=== PATIENT | male | born 1930 | race Caucasian/White ===

== ENCOUNTER 2020-05-04 05:10 | Inpatient (IN) | payer MEDICARE ==
[2020-05-04] MEDS ORDERED: Nitroglycerin 2% Ointment 1 INCH/1 GM Packet ONE (05:47)
[2020-05-04 05:51] LABS: #Eosinphils 0.1 thou/uL (0.0-0.7); #Lymphocytes 2.2 thou/uL (1.20-3.40); #Monocytes 0.6 thou/uL (0.11-0.59); %Basophils 0.3 % (0.0-1.0); %Eosinophils 1.6 % (0.0-10.0); %Monocytes 8.1 % (0.0-10.0); Hemoglobin 10.7 g/dL (14.0-18.0); Mean Corpuscular HGB CONC 32.2 g/dL (32.0-36.0); Mean Corpuscular Hemoglobin 32.6 pg (27.0-31.0); Mean Platelet Volume 8.3 fL (7.4-10.4); Platelet Count 232 thou/uL (130-400); RBC Distribution Width 12.8 % (11.5-14.5); Red Blood Cell (RBC) Count 3.27 mill/uL (4.70-6.10); White Blood Cell (WBC) Count 6.9 thou/uL (4.8-10.8)
[2020-05-04 06:14] LABS: ALT (SGPT) Less than 7 U/L (8-55); AST (SGOT) 11 U/L (5-34); Albumin 3.6 g/dL (3.4-4.8); Alkaline Phosphatase 75 U/L (40-110); Anion Gap 12 mmol/L (10-20); BUN (Urea Nitrogen) 11 mg/dL (8.4-25.7); Bilirubin, Total 0.3 mg/dL (0.2-1.2); Calc. Creatinine Clearance 0 mL/min (70-130); Calcium 8.3 mg/dL (7.8-10.44); Carbon Dioxide 28 mmol/L (23-31); Chloride 102 mmol/L (98-107); Globulin 2.7 g/dL (2.4-3.5); Glucose 117 mg/dL (83-110); Lipase 10 U/L (8-78); Magnesium 1.6 mg/dL (1.6-2.6); Potassium 4.2 mmol/L (3.5-5.1); Protein, Total 6.3 g/dL (5.8-8.1); Sodium 138 mmol/L (136-145)
[2020-05-04] MEDS ORDERED: Labetalol HCl 100 MG/20 ML VIAL ONE (06:49)
[2020-05-04 07:22] LABS: Bilirubin Negative (Negative); Blood, Urine Negative (Negative); Clarity Clear (Clear); Glucose, Urine (Dipstick) Normal (Negative); Ketone, Urine Negative (Negative); Leukocyte Negative Leu/uL (Negative); Nitrite Negative (Negative); Protein, Urine (Dipstick) Negative (Neg-Trace); Specific Gravity, Urine 1.014 (1.002-1.036); Urobilinogen Normal mg/dL (Less than 2)
--- NOTE | 2020-05-04 07:48 | RAD ---
RADIOGRAPH CHEST 1 VIEW: DATE: 05/04/2020 HISTORY: 89-year-old male with chest pain FINDINGS: The thoracic aorta is tortuous and ectatic. There is no evidence of airspace density, cardiomegaly, p ulmonary edema, or pneumothorax. The lateral costophrenic angles are not effaced. Interstitial markings are prominent at bases. IMPRESSION: 1) No acute pulmonary findings. 2) ectasia of thoracic aorta.
[2020-05-04 09:22] LABS: Troponin I 0.013 ng/mL (< 0.028)
[2020-05-04] MEDS ORDERED: Acetaminophen 325 MG TAB PO PRN (10:08)
[2020-05-04] MEDS ORDERED: Dextrose 50% Abboject 50 ML SYRINGE SLOW IVP PRN (10:14)
[2020-05-04] MEDS ORDERED: Dextrose 5% in Water 1,000 ML IV PRN (10:14)
[2020-05-04] MEDS ORDERED: HumaLOG 300 UNITS/3 ML VIAL SC PRN (10:14)
--- NOTE | 2020-05-04 10:25 | PDOC.HHP ---
Hospitalist HPI - History of Present Illness Chest pain History of Present Illness: 89M presents to the ED for evaluation of substernal chest pain/pressure which started 2-3 hours prior to calling 911 for an ambulance. He reports similar chest pain in the past, Dr. Rashid put in 2 cardiac stents last year in 2019. He reports the nitroglycerin paste improved his chest pain. He was also hypertensive on arrival and was given labetalol. He reports some dypnea and diaphoresis with the chest pain. He has a past medical history of HTN, HLD, and Diabetes. Reports chronic back pain x15 years. Reports he applied a fentanyl patch 3 days ago and it has made him feel "wierd" and had fallen multiple times this past week. He denies pain from these falls. ED Course: EKG: NSR with HR 71, no ST changes. First troponin was negative. Was given labetalol and nitropaste in the ED which improved his symptoms. Hospitalist ROS - Review of Systems ROS unobtainable: due to endotracheal tube Constitutional: denies: fever, chills, sweats, weakness, malaise, other Eyes: denies: pain, vision change, conjunctivae inflammation, eyelid inflammation, redness, other ENT: denies: ear pain, ear discharge, nose pain, nose discharge, nose congestion, mouth pain, mouth swelling, throat pain, throat swelling, other Respiratory: reports: shortness of breath Cardiovascular: reports: chest pain, other (Diaphoresis). denies: paroxysmal noc. dyspnea Gastrointestinal: reports: nausea Musculoskeletal: reports: back pain Skin: denies: rash, lesions, dilip, bruising, other Neurological: reports: incoordination - Medication Medications: Aspirin Childrens SunMay 04, 2020 05:45 TABLET, CHEWABLE : Strength - 81 mg : ORAL Patient Dose: 1 tab(s) Oral once a day. metFORMIN SunMay 04, 2020 05:45 TABLET : Strength - 500 mg : ORAL Patient Dose: UNK mg Oral 2 times a day. Eliquis SunMay 04, 2020 06:28 tablet : Strength - 5 mg : ORAL BID Hospitalist History - Past Medical History Cardiac: reports: CAD, HTN, Hyperlipidemia Pulmonary: reports: high cholesterol, hypertension Musculoskeletal: reports: Chronic low back pain - Past Surgical History Other Surgical History: Cardiac Stents x2 in 2019 - Social History Smoking Status: Never smoker Alcohol: reports: None Drugs: reports: none Living Situation: Alone Activity level: independent ambulation - Exam General Appearance: awake alert Eye: PERRL, anicteric sclera ENT: normocephalic atraumatic Neck: supple, no JVD Heart: RRR, normal peripheral pulses Respiratory: CTAB, normal chest expansion Gastrointestinal: soft, normal bowel sounds Extremities: no cyanosis Skin: normal turgor Skin - other findings: Multiple bruises to left side of undetermined age; various stages of healin Neurological: cranial nerve grossly intact Musculoskeletal: normal tone Psychiatric: normal affect, A&O x 3 Hospitalist Results - Labs Result Diagrams: 05/04/20 05:43 05/04/20 05:43 Lab results: WBC 6.9 thou/uL (4.8-10.8) 05/04/20 05:43 Hgb 10.7 g/dL (14.0-18.0) L 05/04/20 05:43 Hct 33.1 % (42.0-52.0) L 05/04/20 05:43 MCV 101.0 fL (78.0-98.0) H 05/04/20 05:43 Plt Count 232 thou/uL (130-400) 05/04/20 05:43 Neutrophils % 58.0 % (42.0-75.0) 05/04/20 05:43 Sodium 138 mmol/L (136-145) 05/04/20 05:43 Potassium 4.2 mmol/L (3.5-5.1) 05/04/20 05:43 Chloride 102 mmol/L (98-107) 05/04/20 05:43 Carbon Dioxide 28 mmol/L (23-31) 05/04/20 05:43 BUN 11 mg/dL (8.4-25.7) 05/04/20 05:43 Creatinine 0.84 mg/dL (0.7-1.3) 05/04/20 05:43 Glucose 117 mg/dL (83-110) H 05/04/20 05:43 Calcium 8.3 mg/dL (7.8-10.44) 05/04/20 05:43 Total Bilirubin 0.3 mg/dL (0.2-1.2) 05/04/20 05:43 AST 11 U/L (5-34) 05/04/20 05:43 ALT Less than 7 U/L (8-55) L 05/04/20 05:43 Alkaline Phosphatase 75 U/L (40-110) 05/04/20 05:43 Troponin I 0.013 ng/mL (< 0.028) 05/04/20 08:47 Serum Total Protein 6.3 g/dL (5.8-8.1) 05/04/20 05:43 Albumin 3.6 g/dL (3.4-4.8) 05/04/20 05:43 Lipase 10 U/L (8-78) 05/04/20 05:43 Urine Ketones Negative mg/dL (Negative) 05/04/20 06:20 Urine Blood Negative (Negative) 05/04/20 06:20 Urine Nitrite Negative (Negative) 05/04/20 06:20 Ur Leukocyte Esterase Negative Herrera/uL (Negative) 05/04/20 06:20 Hospitalist H&P A/P - Problem (1) Chest pain Code(s): R07.9 - CHEST PAIN, UNSPECIFIED Status: Acute (2) Hypertension Code(s): I10 - ESSENTIAL (PRIMARY) HYPERTENSION Status: Chronic (3) Diabetes Code(s): E11.9 - TYPE 2 DIABETES MELLITUS WITHOUT COMPLICATIONS Status: Chronic (4) Hyperlipemia Code(s): E78.5 - HYPERLIPIDEMIA, UNSPECIFIED Status: Chronic (5) Chronic back pain Code(s): M54.9 - DORSALGIA, UNSPECIFIED; G89.29 - OTHER CHRONIC PAIN Status: Chronic - Plan Plan: #Chest Pain Trending troponins Stress test Fast lipids/TSH in AM #HTN- restart her home meds #DM II- ACHS accuchecks, SS insulin for coverage, will restart metformin after stress test #DVT prevention with Eliquis; Pepcid for PUD prevention Attending today is Dr. Adams
[2020-05-04 12:47] LABS: Troponin I 0.018 ng/mL (< 0.028)
[2020-05-04 14:43] VITALS: BMI 20.8
[2020-05-04] MEDS ORDERED: Losartan 25 MG TAB PO SCH (17:00)
[2020-05-04] MEDS ORDERED: Methocarbamol 500 MG TAB PO PRN (17:02)
[2020-05-04] MEDS: hydrALAZINE 20 MG/ML VIAL SLOW IVP PRN (18:30)
[2020-05-04 20:23] LABS: SARS-CoV-2 MS2 Positive; SARS-CoV-2 N Gene Negative; SARS-CoV-2 S Gene Negative; SARS-CoV-2 by NAA Not Detected (NotDetected); SARS-CoV-2 orf1ab Negative
[2020-05-04] MEDS ORDERED: Apixaban 5 MG TAB PO SCH (21:00)
[2020-05-04] MEDS: Famotidine 20 MG TAB PO SCH (21:08)
[2020-05-04] MEDS: Escitalopram Oxalate 10 mg Tablet PO SCH (21:09)
[2020-05-04] MEDS: Carvedilol 6.25 MG TAB PO SCH (21:09)
[2020-05-04] MEDS: Gemfibrozil 600 MG TAB PO SCH (21:09)
[2020-05-04] MEDS: Apixaban 2.5 MG TAB PO SCH (21:10)
[2020-05-04] MEDS: Senokot S 8.6-50 MG TAB PO SCH (21:10)
[2020-05-04] MEDS: HYDROcodone/Acetaminophen 10/325 mg Tablet PO PRN (21:10)
[2020-05-04] MEDS: Nystatin Powder 15 GM BOT TOP SCH (22:14)
[2020-05-05 05:27] LABS: #Eosinphils 0.1 thou/uL (0.0-0.7); #Lymphocytes 2.6 thou/uL (1.20-3.40); #Monocytes 0.5 thou/uL (0.11-0.59); #Neutrophils 3.3 thou/uL (1.40-6.50); %Basophils 0.5 % (0.0-1.0); %Eosinophils 1.3 % (0.0-10.0); %Lymphocytes 40.1 % (21.0-51.0); %Monocytes 7.6 % (0.0-10.0); %Neutrophils 50.6 % (42.0-75.0); Mean Corpuscular HGB CONC 33.6 g/dL (32.0-36.0); Mean Corpuscular Hemoglobin 34.3 pg (27.0-31.0); Mean Platelet Volume 9.3 fL (7.4-10.4); Platelet Count 230 thou/uL (130-400); RBC Distribution Width 12.9 % (11.5-14.5); Red Blood Cell (RBC) Count 3.21 mill/uL (4.70-6.10); White Blood Cell (WBC) Count 6.6 thou/uL (4.8-10.8)
[2020-05-05] MEDS: hydrALAZINE 20 MG/ML VIAL SLOW IVP PRN (06:11)
[2020-05-05 07:10] LABS: ALT (SGPT) 7 U/L (8-55); AST (SGOT) 14 U/L (5-34); Albumin 3.5 g/dL (3.4-4.8); Alkaline Phosphatase 67 U/L (40-110); Anion Gap 15 mmol/L (10-20); BUN (Urea Nitrogen) 11 mg/dL (8.4-25.7); Bilirubin, Total 0.7 mg/dL (0.2-1.2); Calc. Creatinine Clearance 59 mL/min (70-130); Calcium 8.8 mg/dL (7.8-10.44); Carbon Dioxide 24 mmol/L (23-31); Cardiac Risk 3.3 (Less than 4.5); Chloride 102 mmol/L (98-107); Cholesterol 126 mg/dl (< 200 Desired); Globulin 2.5 g/dL (2.4-3.5); Glucose 114 mg/dL (83-110); HDL Cholesterol 38 mg/dL (>60 Neg Risk); LDL Cholesterol, Calculated 63 mg/dL; Sodium 137 mmol/L (136-145); Triglycerides 123 mg/dL (Less than 150)
[2020-05-05] MEDS: Apixaban 2.5 MG TAB PO SCH ×2 (08:54→21:43)
[2020-05-05] MEDS: Gemfibrozil 600 MG TAB PO SCH ×2 (08:54→21:43)
[2020-05-05] MEDS: Tamsulosin HCl 0.4 MG CAP PO SCH (08:54)
[2020-05-05] MEDS: Aspirin 81 mg Enteric Coated Tablet PO SCH (08:54)
[2020-05-05] MEDS: Escitalopram Oxalate 10 mg Tablet PO SCH ×2 (08:55→21:43)
[2020-05-05] MEDS: Famotidine 20 MG TAB PO SCH ×2 (08:55→21:42)
[2020-05-05] MEDS: DULoxetine 60 MG CAP PO SCH (08:55)
[2020-05-05] MEDS: Nystatin Powder 15 GM BOT TOP SCH ×2 (08:56→21:46)
[2020-05-05] MEDS: Senokot S 8.6-50 MG TAB PO SCH ×2 (08:57→21:44)
[2020-05-05] MEDS ORDERED: Enoxaparin Sodium 30 MG/0.3 ML SYRINGE SC SCH (09:00)
[2020-05-05] MEDS: HYDROcodone/Acetaminophen 10/325 mg Tablet PO PRN ×2 (09:01→21:45)
--- NOTE | 2020-05-05 11:19 | NM ---
Radionucleotide stress and rest myocardial perfusion scan with CT attenuation correction and SPECT im aging Left ventricular wall motion evaluation and ejection fraction HISTORY: Chest pain. FINDINGS: Adenosine protocol. Homogeneous uptake of radiotracer throughout the left ventricular myoca rdium. No focal perfusion defect or reversibility. QGS analysis of gated SPECT images shows no focal wall motion abnormalities. Ejection fraction calcul ated at 65%. IMPRESSION : No evidence of ischemia. Normal LVEF.
--- NOTE | 2020-05-05 12:28 | PDOC.HOSPP ---
- Subjective Encounter Date: 05/05/20 Encounter Time: 08:00 Subjective: Patient denies any new complaints, he mentioned his BP was high overnight but denied dizziness, chest pain or dyspnea. - Objective Vital Signs & Weight: Vital Signs (12 hours) Temp Pulse Resp BP BP Pulse Ox 05/05/20 11:48 97.7 F 92 15 106/57 L 97 05/05/20 08:51 97.8 F 88 20 177/85 H 97 05/05/20 06:11 82 05/05/20 03:38 97.8 F 82 18 203/87 H 95 05/05/20 00:41 78 121/70 Weight Weight 63.684 kg I&O: 05/04/20 05/05/20 05/06/20 06:59 06:59 06:59 Intake Total 600 Output Total 275 Balance 325 Result Diagrams: 05/05/20 04:31 05/05/20 04:30 Additional Labs: Accuchecks 05/05/20 05/04/20 05/04/20 06:06 22:15 16:03 POC Glucose 143 H 143 H 108 H Hospitalist ROS - Review of Systems Constitutional: denies: fever, chills, sweats, weakness, malaise, other Eyes: denies: pain, vision change, conjunctivae inflammation, eyelid inflammation, redness, other ENT: denies: ear pain, ear discharge, nose pain, nose discharge, nose congestion, mouth pain, mouth swelling, throat pain, throat swelling, other Respiratory: denies: cough, dry, shortness of breath, hemoptysis, SOB with excertion, pleuritic pain, sputum, wheezing, other Cardiovascular: denies: chest pain, palpitations, orthopnea, paroxysmal noc. dyspnea, edema, light headedness, other Gastrointestinal: denies: nausea, vomiting, abdominal pain, diarrhea, constipation, melena, hematochezia, other Genitourinary: denies: dysuria, frequency, incontinence, hematuria, retention, other Musculoskeletal: denies: neck pain, shoulder pain, arm pain, back pain, hand pain, leg pain, foot pain, other Skin: denies: rash, lesions, dilip, bruising, other Neurological: denies: weakness, numbness, incoordination, change in speech, confusion, seizures, other - Medication Medications: Active Medications Generic Name Dose Route Start Last Admin Trade Name Charlyq PRN Reason Stop Dose Admin Hydrocodone Bitart/Acetaminophen 2 tab 05/04/20 16:40 05/05/20 09:01 Hydrocodone/Acetaminophen 10/325 Mg Tablet PO 2 tab Q6HR PRN Administration Moderate to Severe Pain (6-10) Apixaban 2.5 mg 05/04/20 21:00 05/05/20 08:54 Apixaban 2.5 Mg Tab PO 2.5 mg BID YOSI Administration Aspirin 81 mg 05/05/20 09:00 05/05/20 08:54 Aspirin 81 Mg Enteric Coated Tablet PO 81 mg DAILY YOSI Administration Carvedilol 6.25 mg 05/04/20 21:00 05/04/20 21:09 Carvedilol 6.25 Mg Tab PO 6.25 mg BID YOSI Administration Duloxetine HCl 60 mg 05/05/20 09:00 05/05/20 08:55 Duloxetine 60 Mg Cap PO 60 mg DAILY YOSI Administration Escitalopram Oxalate 10 mg 05/04/20 21:00 05/05/20 08:55 Escitalopram Oxalate 10 Mg Tablet PO 10 mg BID YOSI Administration Famotidine 20 mg 05/04/20 21:00 05/05/20 08:55 Famotidine 20 Mg Tab PO 20 mg BID YOSI Administration Gemfibrozil 600 mg 05/04/20 21:00 05/05/20 08:54 Gemfibrozil 600 Mg Tab PO 600 mg BID YOSI Administration Hydralazine HCl 10 mg 05/04/20 16:49 05/05/20 06:11 Hydralazine 20 Mg/Ml Vial SLOW IVP 10 mg Q4H PRN Administration SBP > 180 and HR < 70 Isosorbide Mononitrate 30 mg 05/05/20 09:00 05/05/20 08:54 Isosorbide Mononitrate Er 30 Mg Tab PO 30 mg DAILY YOSI Administration Nystatin 0 gm 05/04/20 21:00 05/05/20 08:56 Nystatin Powder 15 Gm Bot TOP 1 applic BID YOSI Administration Ranolazine 1,000 mg 05/04/20 21:00 05/05/20 08:55 Ranolazine 500 Mg Tab PO 1,000 mg BID YOSI Administration Senna/Docusate Sodium 2 tab 05/04/20 21:00 05/05/20 08:57 Senokot S 8.6-50 Mg Tab PO Not Given BID YOSI Tamsulosin HCl 0.4 mg 05/05/20 09:00 05/05/20 08:54 Tamsulosin Hcl 0.4 Mg Cap PO 0.4 mg DAILY YOSI Administration - Exam Eye: PERRL ENT: normocephalic atraumatic Neck: supple Heart: RRR, normal peripheral pulses Respiratory: CTAB, normal chest expansion Gastrointestinal: soft, non-tender Extremities: no cyanosis, no edema Skin: normal turgor Neurological: cranial nerve grossly intact Musculoskeletal: normal tone Psychiatric: normal affect, A&O x 3 Hosp A/P (1) Chest pain Code(s): R07.9 - CHEST PAIN, UNSPECIFIED Status: Resolved (2) Hypertension Code(s): I10 - ESSENTIAL (PRIMARY) HYPERTENSION Status: Chronic (3) Diabetes Code(s): E11.9 - TYPE 2 DIABETES MELLITUS WITHOUT COMPLICATIONS Status: Chronic (4) Hyperlipemia Code(s): E78.5 - HYPERLIPIDEMIA, UNSPECIFIED Status: Chronic (5) Chronic back pain Code(s): M54.9 - DORSALGIA, UNSPECIFIED; G89.29 - OTHER CHRONIC PAIN Status: Chronic - Plan #Chest pain Resolved- he had a normal stress test this morning. Did have 12 beats of SVT while in Nuclear med- discussed with Dr. Chester who was aware. He was not concerned as patient had just had adenosine for the stress test. 1130- Patient came back from his stress test this morning, we discussed the results. He was anxious to go home. 1200 - Patient's nurse contacted me after patient had a syncopal episode while getting up to take a shower. The Tech was with him and was willing to catch him and put him back into bed. He did not sustain any injuries. BP was 106/57. We will recheck a CBC and order a 500ml bolus of fluids. Will hold DC for now. Case discussed with Dr. Brar. Will hold his BP meds and then titrate as needed. Recheck vitals, reassess. Recheck lab values.
[2020-05-05] MEDS ORDERED: Sodium Chloride 0.9% 500 ML IV SCH (12:30)
[2020-05-05 13:06] LABS: #Basophils 0.1 thou/uL (0.0-0.2); #Eosinphils 0.1 thou/uL (0.0-0.7); #Lymphocytes 2.3 thou/uL (1.20-3.40); #Monocytes 0.6 thou/uL (0.11-0.59); #Neutrophils 4.6 thou/uL (1.40-6.50); %Basophils 0.7 % (0.0-1.0); %Eosinophils 0.7 % (0.0-10.0); %Lymphocytes 30.7 % (21.0-51.0); %Monocytes 7.3 % (0.0-10.0); %Neutrophils 60.5 % (42.0-75.0); Hemoglobin 11.4 g/dL (14.0-18.0); Mean Corpuscular HGB CONC 32.6 g/dL (32.0-36.0); Mean Corpuscular Hemoglobin 32.9 pg (27.0-31.0); Mean Platelet Volume 8.8 fL (7.4-10.4); Platelet Count 273 thou/uL (130-400); RBC Distribution Width 12.9 % (11.5-14.5); Red Blood Cell (RBC) Count 3.47 mill/uL (4.70-6.10); White Blood Cell (WBC) Count 7.6 thou/uL (4.8-10.8)
[2020-05-05] MEDS: Carvedilol 6.25 MG TAB PO SCH ×2 (13:08→21:43)
[2020-05-05] MEDS: Losartan 25 MG TAB PO SCH (13:08)
[2020-05-05] MEDS ORDERED: ADENOSINE 60 MG/20 ML VIAL ONE (13:50)
[2020-05-05] MEDS ORDERED: Atorvastatin Calcium 40 MG TAB PO SCH (21:00)
[2020-05-06 05:08] LABS: Hemoglobin 10.6 g/dL (14.0-18.0); Platelet Count 242 thou/uL (130-400)
[2020-05-06 05:24] LABS: Calc. Creatinine Clearance 56 mL/min (70-130)
[2020-05-06] MEDS: Losartan 25 MG TAB PO SCH (09:20)
[2020-05-06] MEDS: Escitalopram Oxalate 10 mg Tablet PO SCH (09:21)
[2020-05-06] MEDS: Tamsulosin HCl 0.4 MG CAP PO SCH (09:21)
[2020-05-06] MEDS: Carvedilol 6.25 MG TAB PO SCH (09:21)
[2020-05-06] MEDS: Senokot S 8.6-50 MG TAB PO SCH (09:21)
[2020-05-06] MEDS: DULoxetine 60 MG CAP PO SCH (09:22)
[2020-05-06] MEDS: Apixaban 2.5 MG TAB PO SCH (09:22)
[2020-05-06] MEDS: Aspirin 81 mg Enteric Coated Tablet PO SCH (09:22)
[2020-05-06] MEDS: Gemfibrozil 600 MG TAB PO SCH (09:22)
[2020-05-06] MEDS: Nystatin Powder 15 GM BOT TOP SCH (09:27)
[2020-05-06] MEDS: HYDROcodone/Acetaminophen 10/325 mg Tablet PO PRN (09:32)
[2020-05-06] MEDS: Famotidine 20 MG TAB PO SCH (10:27)
[2020-05-06 15:25] VITALS: BP 141/76; TEMP 97.7
--- NOTE | 2020-05-06 17:06 | PDOC.DS.DS ---
Provider - Provider Date of Admission: 05/05/20 14:35 Date of Discharge: 05/06/20 Admitting Provider: Ayah Villagomez MD Primary Care Physician: Israel Mckeon MD Course - Hospital Course Hospital Course: Discharge diagnosis: 1. Chest pain 2. Chest pain most likely secondary to musculoskeletal etiology 3. Orthostatic hypotension 4. Falls 5. COVID-19 PCR test negative Hospital course: Patient is a pleasant 89-year-old gentleman who was admitted to the hospital on May 04, 2020 for chest pain. He had a nuclear stress test, which did not show any evidence of ischemia. Left frontal ejection fraction was 65%. He was also found to have orthostatic hypotension. Cortisol level was normal. He was seen by physical therapy service, who gave him advice regarding orthostatic hypotension. They also recommended inpatient rehabilitation. Patient did not wish to have inpatient rehab. Arrangements are being made for home health for physical therapy prior to discharge. Many thanks for allowing me to participate in your patient's care. Please feel free to contact me with any questions or concerns. Discharge destination: Home Total amount of time spent coordinating this discharge: 32 minutes - Labs Lab Results: 05/06/20 04:36 05/06/20 04:36 Abnormal Lab Results - Last 48 hrs 05/05/20 04:30: ALT 7 L 05/05/20 04:31: RBC 3.21 L, Hgb 11.0 L, Hct 32.7 L, MCV 102.0 H, MCH 34.3 H 05/05/20 12:59: RBC 3.47 L, Hgb 11.4 L, Hct 35.1 L, MCV 101.0 H, MCH 32.9 H, Monocytes # 0.6 H 05/06/20 04:36: Hgb 10.6 L, Hct 32.4 L 05/06/20 08:11: D-Dimer 0.59 H - Physical Exam Vitals: Vital Signs (12 hours) Temp Pulse Resp BP BP BP BP 05/06/20 15:23 97.7 F 81 16 05/06/20 12:00 98.0 F 92 18 05/06/20 11:46 135/81 140/71 168/90 H 05/06/20 09:21 162/70 H 05/06/20 08:00 98.4 F 80 18 BP BP BP Pulse Ox 05/06/20 15:23 141/76 H 05/06/20 12:00 140/71 05/06/20 11:46 05/06/20 09:21 05/06/20 08:00 162/70 H 172/90 H 122/65 95 Weight Weight 140 lb 6.4 oz Physical Exam: The patient was seen and examined on the day of discharge. Patient denies chest pain or shortness of breath. Vital signs are stable. S1 and S2 are heard. Lungs are clear to auscultation bilaterally. Plan - Discharge Medications Prescriptions: Nitroglycerin 0.4 mg SL Q5MIN #1 tab.subl Home Medications: Medication Instructions Recorded Confirmed Type Apixaban [Eliquis] 2.5 mg PO BID 05/04/20 05/04/20 History Atorvastatin Calcium 40 mg PO DAILY 05/04/20 05/04/20 History Carvedilol 6.25 mg PO BID 05/04/20 05/04/20 History DULoxetine [Cymbalta] 60 mg PO DAILY 05/04/20 05/04/20 History Escitalopram Oxalate 10 mg PO BID 05/04/20 05/04/20 History Gemfibrozil 600 mg PO BID 05/04/20 05/04/20 History HYDROcodone Bit/APAP 10/325 [Padroni] 2 tab PO Q6HR PRN 05/04/20 05/04/20 History Isosorbide Mononitrate [Isosorbide 30 mg PO DAILY 05/04/20 05/04/20 History Mononitrate ER] Losartan Potassium 100 mg PO DAILY 05/04/20 05/04/20 History Methocarbamol [Robaxin-750] 750 mg PO TID PRN 05/04/20 05/04/20 History Naloxone HCl [Narcan] 4 mg NASAL PRN PRN 05/04/20 05/04/20 History Nystatin [Nystop] 1 applic TOP BID 05/04/20 05/04/20 History Ranolazine [Ranolazine ER] 1,000 mg PO BID 05/04/20 05/04/20 History Tamsulosin HCl [Flomax] 0.4 mg PO DAILY 05/04/20 05/04/20 History metFORMIN HCl [Metformin HCl] 500 mg PO BID 05/04/20 05/04/20 History Nitroglycerin 0.4 mg SL Q5MIN #1 tab.subl 05/05/20 Rx fentaNYL [Duragesic] 25 mcg TD Q3D 05/06/20 05/06/20 History Allergies: Penicillins Allergy (Verified 05/04/20 11:13) - Discharge Instructions Discharge Instructions:: Please follow up with Dr. Mckeon and Dr. Rashid within the next 7-10 days. If you experience chest pain, you may try taking the nitroglycerin tablets, if not improved, or if concerned, please go to the closest emergency room. Activity:: Activity as Tolerated Nourishment:: Heart Healthy Diet - Follow up Plan Referrals: Israel Mckeon MD [Primary Care Provider] - 7 Days (Please call your PCP for follow up in 3 days Follow up with PCP to setup Home Health Rehab ) Disposition: HOME Quality - Care Measures CORE MEASURES:: N/A
== END 2020-05-06 16:45 | disposition home or self-care (01) | DRG 313 ==
LOC: ERS 05:10 → ERHOLD 08:20 → 2NO 14:39 → OBSVTOIN 05-05 14:35
PROVIDERS: ADMIT Internal Medicine; ATTEND Internal Medicine
DX: R07.89 Other chest pain (principal); I47.1 Supraventricular tachycardia; I25.10 Atherosclerotic heart disease of native coronary artery without angina pectoris; Z20.828 Contact with and (suspected) exposure to other viral communicable diseases; I10 Essential (primary) hypertension; E78.5 Hyperlipidemia, unspecified; E11.9 Type 2 diabetes mellitus without complications; G89.29 Other chronic pain; I95.1 Orthostatic hypotension; E78.00 Pure hypercholesterolemia, unspecified; Z88.0 Allergy status to penicillin; Z79.84 Long term (current) use of oral hypoglycemic drugs; Z79.82 Long term (current) use of aspirin; Z91.81 History of falling; Z95.5 Presence of coronary angioplasty implant and graft
CPT/HCPCS: 36415; 36416; 71045; 78452; 80053; 80061; 81003; 82533; 82565; 83690; 83735; 84443; 84484; 85014; 85018; 85025; 85049; 85379; 87635; 93005; 93017; 96374; 96375; 96376; A9500; G0378; J0153; J0360; U0003

== ENCOUNTER 2020-05-12 22:14 | Inpatient (IN) | payer MEDICARE ==
[2020-05-12] MEDS ORDERED: Morphine 4 MG/ML VIAL ONE (22:34)
[2020-05-12] MEDS ORDERED: hydrALAZINE 20 MG/ML VIAL SLOW IVP PRN (23:23)
[2020-05-12] MEDS ORDERED: Dextrose 50% Abboject 50 ML SYRINGE SLOW IVP PRN (23:23)
[2020-05-12] MEDS ORDERED: Dextrose 5% in Water 1,000 ML IV PRN (23:23)
[2020-05-12] MEDS ORDERED: Ondansetron PF 4 MG/2 ML Vial IVP PRN (23:23)
[2020-05-12] MEDS ORDERED: Cyclobenzaprine 10 MG TAB PO PRN (23:30)
[2020-05-12] MEDS ORDERED: Acetaminophen 325 MG TAB PO SCH (23:30)
[2020-05-13] MEDS ORDERED: Morphine 4 MG/ML VIAL ONE (00:44)
--- NOTE | 2020-05-13 02:30 | HP ---
TRAUMA SURGEON: Dr. Cruz. CONSULTING PHYSICIAN: Dr. Hernandez. HISTORY OF PRESENT ILLNESS: The patient is an 89-year-old male, who presented to the emergency department from [facility]. The patient reported that earlier today, he had a mechanical fall while in the bathroom. He reports that his right leg suddenly gave out while he was in the bathroom. He fell onto his right side. He denies hitting his head or loss of consciousness. He states that he has chronic back pain with spinal stenosis and occasionally he has lower extremity weakness and subsequently fall. He denies any lightheadedness, nausea, vomiting, chest pain, shortness of breath, or weakness before the event. The patient does take Eliquis. His GCS is 15 upon my evaluation. He was recently in the hospital on May 04 for two days after reporting chest pain. He has a cardiac history with two cardiac st[place] [address] Beal. On his last hospital admission just last week, the patient had a nuclear stress test, which demonstrated no signs of ischemia with EF of 65%. The patient reports at that time he had heaviness in his chest. Since discharge, he has not had any of such symptoms at home. On his last admission, it was recommended that the patient go to inpatient rehab facility, but the patient declined. He lives at home alone. He has family members, who live near him and help with his care. He does have a Life Alert button that he used to call for assistance. He has had multiple falls recently, even more often than he originally admitted. At the time of my evaluation, the patient denied chest pain, shortness of breath, nausea, vomiting, or abdominal pain. He does report that he has lower back pain that is worse than usual. He does have a fentanyl patch as well as Auberry prescriptions at home. The patient last took his Eliquis earlier this morning. He did not take his evening dose. PAST MEDICAL HISTORY: Cardiac stents in 2019, hypertension, hyperlipidemia, diabetes, chronic back pain with spinal stenosis. PAST SURGICAL HISTORY: Cardiac stents in 2019. SOCIAL HISTORY: The patient lives at home alone. He uses a walker to get around. He denies tobacco, drug, or alcohol use. MEDICATIONS: Include, 1. Nitroglycerin. 2. Auberry 10 two tablets q.6 hours as needed. 3. Isosorbide mononitrate. 4. Atorvastatin. 5. Metformin. 6. Flomax. 7. Ranolazine extended release. 8. Nystatin. 9. Naloxone. 10. Robaxin. 11. Losartan. 12. Gemfibrozil. 13. Escitalopram. 14. Cymbalta. 15. Carvedilol. 16. Eliquis. 17. Fentanyl patch 25 mcg transdermal q.3 days. ALLERGIES: PENICILLIN. PHYSICAL EXAMINATION: VITAL SIGNS: Temperature 98.2, pulse 106, respirations 16, oxygen saturation 100% on 3 L nasal cannula, and blood pressure 103/70. PRIMARY SURVEY: Airway intact. Adequate breath sounds bilaterally. 2+ pulses in the bilateral radials, femorals, and DPs. GCS 15. Gross motor and sensation are intact. No lacerations or external bleeding. The patient does have some bruising to his right lower quadrant, left flank, and left buttock area. SECONDARY SURVEY: HEAD: Normocephalic and atraumatic. No gross palpable skull deformities or tenderness. EYES: Pupils 3 to 2, equal, round, and reactive to light bilaterally. ENT: No signs of trauma. C-SPINE: No step-offs or deformities. Nontender. C-collar not in place. CHEST: Nontender. No crepitus. No abrasions or ecchymosis noted. Equal chest movement. ABDOMEN: Soft, nontender, nondistended. Right lower quadrant bruise. PELVIS: Stable to palpation. Nontender. No abrasions or ecchymosis noted. RECTAL: Deferred. GENITOURINARY: Normal external genitalia. No blood at the meatus. EXTREMITIES: The patient has a deformity to his left lateral proximal thigh with some bruising on the posterior aspect. No abrasions noted. 2+ pulses in the bilateral radials, femorals, and DPs. BACK/SPINE: No step-offs or deformities to the thoracic or lumbar spine. The patient does have tenderness to the lower L-spine, which is worse than baseline. No abrasions or ecchymosis noted. NEUROLOGIC: 5/5 strength in the bilateral hyperion developer, plantar flexion, and dorsiflexion. Gross normal sensation x4 extremities. LABORATORY FINDINGS: White count 5.4, hemoglobin 10.1, hematocrit 31.4, and platelets 247. INR 1.1 and PTT 27.8. Sodium 137, potassium 4.3, chloride 99, bicarb 31, BUN 12, creatinine 0.84, glucose 163, total bilirubin 0.2, AST 13, ALT 7, and alkaline phosphatase 71. DIAGNOSTIC FINDINGS: Chest x-ray demonstrates no evidence for an acute cardiopulmonary process. X-ray of the left hip demonstrates intertrochanteric left proximal femoral fracture. CT of the left lower extremity demonstrates displaced and angulated intertrochanteric left proximal femoral fracture. CT scan of the brain demonstrates no acute intracranial abnormalities, diffuse parenchymal bone loss with sequelae of chronic small-vessel ischemic disease, hyperdense opacification on the left sphenoid, ethmoid, and bilateral maxillary sinuses, which could represent inspired secretions or fungal colonization. CT scan of the T and L-spine demonstrates no acute thoracic or lumbar spinal abnormalities, rightward curvature of the lumbar spine with moderate to severe multilevel degenerative changes most pronounced in the lower L-spine, dilated common bile duct measuring approximately 1.2 cm. No intraluminal calcification, stone. Coronary artery atherosclerosis disease to include the peripheral vessels. ASSESSMENT: 1. Status post mechanical fall from standing. 2. Left intertrochanteric femur fracture. 3. History of cardiac stents x2, coronary artery disease, hypertension, hyperlipidemia, diabetes, and chronic back pain with spinal stenosis, on chronic opioid pain medications and on Eliquis. PLAN: The patient will be admitted to the Trauma Service. He will go to the regular surgical nursing floor. Dr. Hernandez of Orthopedic Surgery has been consulted. He recommends postponing operative intervention until Sunday as the patient last took his Eliquis earlier this morning. We will continue to monitor the patient's lower back pain. If there are new concerns such as worsening back pain or neurological deficiencies, we will consider completing MRI of the spine at this time; however, we will continue conservative management. Pain medications will include the patient's home Auberry prescription with additional adjunctive pain medications. We will modify those as needed. Restart home carvedilol b.i.d. with hold parameters. Hold Eliquis. Repeat blood work in the morning. The patient will have a diabetic diet at this time and will be n.p.o. at midnight on May 14, 2020. Postoperatively, the patient will need placement at acute rehab facility. He is more open minded for this hospitalization to go to rehab. We will have Case Management speak to the patient and coordinate with his family postop. This patient was discussed with Dr. Cruz before this dictation. Job ID: [id number]
[2020-05-13] MEDS: Morphine 4 MG/ML VIAL SLOW IVP PRN ×2 (02:56→07:13)
[2020-05-13 05:50] LABS: #Eosinphils 0.1 thou/uL (0.0-0.7); #Lymphocytes 2.4 thou/uL (1.20-3.40); #Monocytes 0.8 thou/uL (0.11-0.59); #Neutrophils 5.5 thou/uL (1.40-6.50); %Basophils 0.1 % (0.0-1.0); %Eosinophils 1.5 % (0.0-10.0); %Lymphocytes 27.4 % (21.0-51.0); %Monocytes 8.7 % (0.0-10.0); %Neutrophils 62.3 % (42.0-75.0); Hemoglobin 9.5 g/dL (14.0-18.0); Mean Corpuscular HGB CONC 31.8 g/dL (32.0-36.0); Mean Corpuscular Hemoglobin 32.6 pg (27.0-31.0); Mean Platelet Volume 8.6 fL (7.4-10.4); Platelet Count 215 thou/uL (130-400); RBC Distribution Width 12.4 % (11.5-14.5); White Blood Cell (WBC) Count 8.8 thou/uL (4.8-10.8)
[2020-05-13 06:10] LABS: Anion Gap 12 mmol/L (10-20); BUN (Urea Nitrogen) 15 mg/dL (8.4-25.7); Calc. Creatinine Clearance 3 mL/min (70-130); Carbon Dioxide 31 mmol/L (23-31); Chloride 101 mmol/L (98-107); Glucose 144 mg/dL (83-110); Magnesium 1.4 mg/dL (1.6-2.6); Phosphorus 2.9 mg/dL (2.3-4.7); Potassium 4.8 mmol/L (3.5-5.1); Sodium 139 mmol/L (136-145)
[2020-05-13] MEDS: Ibuprofen 200 MG TAB PO SCH ×3 (06:15→21:09)
[2020-05-13] MEDS: Acetaminophen 325 MG TAB PO SCH ×4 (06:16→23:44)
--- NOTE | 2020-05-13 07:27 | CT ---
PRELIMINARY REPORT/DIRECT RADIOLOGY/EMERGENCY AFTER HOURS PROCEDURE: EXAM: CT Head Without Intravenous Contrast. CLINICAL HISTORY: FALL, WITH HIP FX TECHNIQUE: Axial computed tomography images of the head/brain without intravenous contrast. COMPARISON: None provided. FINDINGS: BRAIN: Diffuse brain parenchymal volume loss with periventricular and subcortical white matter hypode nsities. No acute intraparenchymal hemorrhage. No mass lesion. No CT evidence for acute territorial infarct. No midline shift or extra-axial collection. VENTRICLES: No hydrocephalus. ORBITS: No acute finding SINUSES AND MASTOIDS: Hyperdense opacification of the left sphenoid, ethmoid and bilateral maxillary sinuses. Mastoid air cells are clear. SOFT TISSUES: No significant facial or scalp soft tissue swelling evident. No radiopaque foreign body is seen. BONES: No acute skull fracture. IMPRESSION: 1. No acute intracranial abnormality. 2. Diffuse brain parenchymal bone loss with sequela of chronic small vessel ischemic disease. 3. Hyperdense opacification of the left sphenoid, ethmoid and bilateral maxillary sinuses which coul d represent inspissated secretions or fungal colonization. ELECTRONICALLY SIGNED BY: Merlin Araujo DO May 13, 2020 12:10:49 AM RELATIONSHIP ADVISOR FINAL REPORT HEAD CT WITHOUT CONTRAST: DATE: 05/12/2020. COMPARISON: None. HISTORY: Fall on blood thinners, hip fracture. FINDINGS: I agree with the preliminary report. Hyperdense opacification of the posterior ethmoid air cells, and sphenoid sinus on the left as well as hyperdense opacification of bilateral maxillary sinuses noted which may signify inspissated secretions or fungal colonization. There is cerebral volume loss and periventricular hypodensity suggesting small vessel disease. No intracranial hemorrhage, midline shift, mass effect, or ventricular enlargement. IMPRESSION: No intracranial hemorrhage or displaced calvarial fracture. Transcribed Date/Time: 05/13/2020 8:43 AM
--- NOTE | 2020-05-13 07:46 | CT ---
PRELIMINARY REPORT/DIRECT RADIOLOGY/EMERGENCY AFTER HOURS PROCEDURE: EXAM: CT thoracic and Lumbar Spine Without Intravenous Contrast. CLINICAL HISTORY: FALL, WITH HIP FX// TECHNIQUE: Axial computed tomography images of the thoracic and lumbar spine without intravenous cont rast. Sagittal and coronal reformations performed. COMPARISON: None provided. FINDINGS: BONES: No acute fracture or focal osseous lesion. Bony alignment is anatomic. DISCS/DEGENERATIVE CHANGES: Multilevel degenerative changes of the thoracic and lumbar spine most pro nounced in the lumbar spine at L2-L4 with rightward convex curvature of the lumbar spine. SOFT TISSUES: The paraspinal soft tissues are unremarkable. Fibrotic changes of the lungs. Dilated c ommon bile duct measuring 1.2 cm. Scattered aphthous bibasilar calcifications of the aorta and coronary arteries. IMPRESSION: 1. No acute thoracic or lumbar spine abnormality. 2. Rightward curvature of the lumbar spine with moderate to severe multilevel degenerative changes m ost pronounced in the lower lumbar spine. 3. Dilated common bile duct measuring approximately 1.2 cm. No intraluminal calcified stone. 4. Coronary artery atherosclerotic disease to include the peripheral vessels. ELECTRONICALLY SIGNED BY: Merlin Araujo DO May 13, 2020 12:13:34 AM VEST TAILOR FINAL REPORT CT OF THE LUMBAR SPINE WITHOUT CONTRAST: DATE: 05/12/2020. COMPARISON: None. HISTORY: Pain, trauma, history of spinal stenosis. FINDINGS: I agree with the preliminary report. Assessment for central canal and/or neural foraminal stenosis is limited on routine CT. Imaged lung parenchyma demonstrates coarse nonspecific linear interstitial density as well as centrilobular emphysematous change. There is a 4-5 mm pulmonary nodule in the post erior inferior left lower lobe. There is intra- and extrahepatic biliary dilatation, only partially visualized on this exam. The common bile duct measures 1.2 cm in transverse dimension. There is a mid pole left renal cyst. There is extensive atherosclerotic calcification of the abdominal aorta and its branches. Partially imaged bowel demonstrates sigmoid diverticulosis. The bones appear markedly demineralized. There is mid lumbar spine dextroscoliosis. No acute lumbar spine fracture or dislocation. Anterolisthesis at L4-5 noted measuring 5 mm. T12-L1: Mild bilateral facet hypertrophy with no osseous cause of significant central canal or neural foraminal stenosis. L1-2: Disc space narrowing and vacuum disc formation. Bilateral facet hypertrophy, left greater than right. Bilateral neural foraminal stenosis is suspected. L2-3: Prominent degenerative change involving the endplates with disc space narrowing and left latera l osteophyte formation. Bilateral facet hypertrophy, left greater than right. Significant central canal stenosis/left lateral recess stenosis/left neural foraminal stenosis suspected. L3-4: Disc space narrowing with degenerative endplate change and vacuum disc formation. Bilateral fac et hypertrophy. Moderate/severe central canal stenosis and severe left lateral recess stenosis suspected with bilateral neural foraminal stenosis, right greater than left. L4-5: Disc space narrowing with vacuum disc formation. Bilateral facet hypertrophy with moderate bila teral neural foraminal stenosis and severe central canal stenosis. L5-S1: Disc osteophyte complex and bilateral facet hypertrophy leads to bilateral moderate neural for aminal stenosis and moderate/severe central canal stenosis. IMPRESSION: 1. Severe lumbar spine degenerative change. No evidence for acute fracture or dislocation. Osteopenia limits detailed assessment and if symptoms persist, follow-up lumbar spine MRI suggested. 2. Intra- and extrahepatic biliary dilatation, incompletely assessed on this examination. Correlatio n with LFTs and consideration for dedicated imaging of the abdomen advised to exclude the possibility of a biliary obstructive process. Transcribed Date/Time: 05/13/2020 8:53 AM
--- NOTE | 2020-05-13 07:51 | CT ---
PRELIMINARY REPORT/DIRECT RADIOLOGY/EMERGENCY AFTER HOURS PROCEDURE: EXAM: CT thoracic and Lumbar Spine Without Intravenous Contrast. CLINICAL HISTORY: FALL, WITH HIP FX// TECHNIQUE: Axial computed tomography images of the thoracic and lumbar spine without intravenous cont rast. Sagittal and coronal reformations performed. COMPARISON: None provided. FINDINGS: BONES: No acute fracture or focal osseous lesion. Bony alignment is anatomic. DISCS/DEGENERATIVE CHANGES: Multilevel degenerative changes of the thoracic and lumbar spine most pro nounced in the lumbar spine at L2-L4 with rightward convex curvature of the lumbar spine. SOFT TISSUES: The paraspinal soft tissues are unremarkable. Fibrotic changes of the lungs. Dilated c ommon bile duct measuring 1.2 cm. Scattered aphthous bibasilar calcifications of the aorta and coronary arteries. IMPRESSION: 1. No acute thoracic or lumbar spine abnormality. 2. Rightward curvature of the lumbar spine with moderate to severe multilevel degenerative changes m ost pronounced in the lower lumbar spine. 3. Dilated common bile duct measuring approximately 1.2 cm. No intraluminal calcified stone. 4. Coronary artery atherosclerotic disease to include the peripheral vessels. ELECTRONICALLY SIGNED BY: Merlin Araujo DO May 13, 2020 12:13:34 AM TOP LIFT CUTTER FINAL REPORT THORACIC SPINE CT WITHOUT CONTRAST: DATE: 05/12/2020. COMPARISON: None. HISTORY: Pain, trauma. FINDINGS: The partially imaged lung parenchyma demonstrates scattered areas of chronic appearing linear interst itial density as well as scattered areas of emphysematous change and mild bronchiectasis and bronchial wall thickening. There is an area of soft tissue density along the ventral aspect of the trachea at the axial level of the manubrium which could represent a polypoid tracheal lesion or less likely, adherent mucus. This measures 1 cm in craniocaudal dimension and was not mentioned on the preliminary report. Evaluation for central canal and/or neural foraminal stenosis is limited on routine CT. The bones are diffusely demineralized, limiting assessment for nondisplaced fracture. No thoracic spi ne anterolisthesis or retrolisthesis is appreciated. Minimal anterolisthesis at C7-T1. No osseous cause of significant central canal or neural foraminal stenosis is evident within the thor acic spine. There is multilevel thoracic spine disc space narrowing with mild anterior osteophyte formation. No evidence for acute fracture or dislocation within the thoracic spine. IMPRESSION: No acute fracture or dislocation is evident within the thoracic spine. If symptoms persist, MRI is ad vised. There are chronic pulmonary parenchymal findings as detailed above. There is a polypoid lesion within the anterior aspect of the trachea measuring 1 cm at the axial level of the manubrium, not mentioned on the preliminary report. This is suspicious for a nonspecific polypoid lesion. A follow-u p contrast-enhanced CT of the chest would be the study of choice for better assessment. CODE T Transcribed Date/Time: 05/13/2020 9:01 AM
[2020-05-13] MEDS: Famotidine/PF 20 mg/2ml Vial SLOW IVP SCH (08:25)
[2020-05-13] MEDS: Senokot S 8.6-50 MG TAB PO SCH ×2 (08:25→21:20)
[2020-05-13] MEDS: Carvedilol 6.25 MG TAB PO SCH ×2 (08:25→17:47)
[2020-05-13] MEDS: Polyethylene Glycol 3350 17 GM Packet PO SCH (08:25)
[2020-05-13] MEDS: Gabapentin 100 MG CAP PO SCH ×3 (08:25→21:08)
--- NOTE | 2020-05-13 08:52 | CON ---
DATE OF CONSULTATION: 05/13/2020 REQUESTING PHYSICIAN: Lali Cruz MD CONSULTING PHYSICIAN: Bonifacio Hernandez MD REASON FOR CONSULTATION: Left hip 3-part intertrochanteric base neck fracture. BRIEF CLINICAL HISTORY: Amanda is an 89-year-old white male, who was admitted by the Trauma Team after he sustained a ground level fall at home. He was brought via EMS to [facility], where plain radiographs demonstrated his left hip fracture. He has been admitted by the Trauma Team, and our service has been consulted for definitive orthopedic management of this problem. He has had a history of falls recently, and he takes Eliquis for his peripheral vascular and cardiovascular disease. Approximately a week ago, he was admitted for cardiac rule out, which was negative. He still has ejection fracture of 65%. He has been COVID negative on his last admission as well as this current admission. PAST MEDICAL HISTORY: Significant for cardiovascular and peripheral vascular disease, hypertension, hyperlipidemia, chronic low back pain secondary to spinal stenosis, benign prostatic hypertrophy. PAST SURGICAL HISTORY: Cardiac stent placement in 2019. SOCIAL HISTORY: [place] He has 2 sons who live on the property with him. He denies any ethanol, tobacco, illicit drug abuse. He does use a walker to get around. MEDICATIONS: 1. Nitroglycerin. 2. [place]. 3. Isosorbide. 4. Atorvastatin. 5. Metformin. 6. Flomax. 7. Nystatin. 8. Losartan. 9. Gemfibrozil. 10. Cymbalta. 11. Carvedilol. 12. Eliquis. 13. Fentanyl patch for pain control as prescribed by his Pain Management physician. ALLERGIES: THE PATIENT CLAIMS PENICILLIN. PHYSICAL EXAMINATION: GENERAL: This is a well-nourished, well-developed elderly male, appearing his stated age, in no apparent distress or discomfort. He is alert and oriented to person, place, time, situation. Appropriate and responsive with the examiner. HEENT: Head is normocephalic, atraumatic. Pupils equally round and reactive to light. Oropharynx benign. CHEST: Clear to auscultation. ABDOMEN: Soft, benign. EXTREMITIES: No clubbing, cyanosis, or edema. There is shortening and external rotation of the left lower extremity relative to the right, but he is neurovascularly intact in the left lower extremity. Full digital excursion observed. IMAGING STUDIES: Two-view left hip demonstrates a varus angulated, short and displaced 3-part base neck hip fracture on the left. IMPRESSION: 1. Varus angulated 3-part base neck hip fracture of the left. 2. Currently, on anticoagulation. 3. Cardiovascular and peripheral vascular disease. 4. Hyperlipidemia. 5. Hypertension. 6. Advanced age, but very active and independent yet with new onset of falls, becoming more of a home risk. PLAN: 1. The risks, benefits, options, alternatives, and rationale for proceeding with left hip short versus long trochanteric nail fixation and stabilization have been explained in great detail with the patient. He is ready to proceed. All questions were answered. No guarantee of outcome stated or implied. 2. Surgery will be performed tomorrow. His Eliquis has been discontinued now for less than 24 hours. 3. NPO after midnight. Job ID: [id number]
--- NOTE | 2020-05-13 16:01 | PRG ---
DATE OF SERVICE: 05/13/2020 SUBJECTIVE: The patient was seen during morning rounds with Dr. Angel. He is awake, alert, in no distress. The patient had no overnight events and his pain is well controlled. The patient had a mechanical fall yesterday and sustaining a left intertrochanteric femur fracture. The patient does take Eliquis daily. The patient is tolerating diabetic diet at this time. OBJECTIVE: VITAL SIGNS: Temperature 98.2, pulse 82, respirations 18, SpO2 of 95% on room air, blood pressure 127/73. GENERAL: Well-appearing elderly male, awake, alert, in no distress. HEENT: Unremarkable. RESPIRATORY: Good inspiratory and expiratory effort. Respirations are even and nonlabored. CARDIAC: Regular rate, regular rhythm. ABDOMEN: Soft, nontender, nondistended. EXTREMITIES: Moves all extremities, neurovascularly intact x4. NEUROLOGIC: No focal deficits. LABORATORY DATA: There are no new labs to evaluate today. DIAGNOSTICS: There are no new diagnostics. ASSESSMENT: 1. Status post mechanical fall from standing. 2. Left intertrochanteric femur fracture. 3. Anticoagulation, use Eliquis. 4. History of cardiac stents x2, coronary artery disease, hypertension, hyperlipidemia, diabetes, and chronic back pain with spinal stenosis, on chronic opioid medications. PLAN: Continue supportive care and pain regimen. Diabetic diet as tolerated. N.p.o. after midnight as Orthopedic Surgery plans to take the patient to the OR tomorrow for repair of his left intertrochanteric femur fracture. PT and OT to evaluate and treat postop. We will place a rehab screen as the patient will likely need rehab for continued physical and occupational therapy. We will hold patient's Eliquis. The patient was examined by Dr. Angel during morning rounds. Job ID: [id number]
[2020-05-13] MEDS: HYDROcodone/Acetaminophen 10/325 mg Tablet PO PRN (21:35)
[2020-05-14] MEDS ORDERED: Sodium Chloride 0.9% 1,000 ML IV SCH (00:01)
--- NOTE | 2020-05-14 00:37 | PRG ---
DATE OF SERVICE: 05/13/2020 SUBJECTIVE: Patient was seen this evening during rounds. He was half way sitting up at the edge of the bed and had tried to void into a urinal, ultimately making a mess on the floor. The patient was mildly confused, but reoriented. Nursing called to the bedside. The patient was changed and made comfortable in bed. Bed alarm was placed. OBJECTIVE: VITAL SIGNS: Temperature 98.6, pulse 96, respirations 16, oxygen saturation 93% on room air, blood pressure 121/64. GENERAL: Well-appearing elderly male, lying in bed with no signs of acute distress. ASSESSMENT: 1. Status post mechanical fall from standing, multiple recent falls, on Eliquis. 2. Left intertrochanteric femur fracture. 3. Chronic back pain. 4. History of cardiac stents x2, hypertension, hyperlipidemia, diabetes, and chronic opiate use due to spinal stenosis. PLAN: Continue current diet. N.p.o. at midnight. We will start normal saline at 75 an hour for 1 L at midnight. Restart patient's home Spironolactone and Lisinopril with hold parameters as well as Flomax. The patient is going to the OR tomorrow with Dr. Hernandez for fixation of his left intertrochanteric femur fracture. Job ID: [id number] [facility]
[2020-05-14] MEDS: Morphine 4 MG/ML VIAL SLOW IVP PRN (04:30)
[2020-05-14] MEDS: Acetaminophen 325 MG TAB PO SCH ×4 (05:21→23:21)
[2020-05-14] MEDS: Ibuprofen 200 MG TAB PO SCH ×3 (05:22→21:13)
[2020-05-14] MEDS: Carvedilol 6.25 MG TAB PO SCH ×2 (05:22→17:51)
[2020-05-14] MEDS ORDERED: Heparin 10,000 UNITS/ 10 ML VIAL ONE (07:22)
[2020-05-14] MEDS ORDERED: Bupivacaine 0.25% HCL 30 ML VIAL ONE (07:22)
[2020-05-14] MEDS ORDERED: Sodium Chloride 0.9% 30 ML ONE (07:22)
[2020-05-14] MEDS ORDERED: Lidocaine 2% w/Epinephrine 1:200K 20 ML VIAL ONE (07:22)
[2020-05-14] MEDS ORDERED: Fentanyl 100 MCG/2 ML VIAL ONE (07:29)
[2020-05-14] MEDS ORDERED: Levofloxacin 500 mg/D5W 100 ml Premix Bag ONE (07:43)
[2020-05-14] MEDS ORDERED: Clindamycin/D5W 900 mg/50 ml Premix Bag ONE (07:43)
[2020-05-14] MEDS ORDERED: Promethazine HCl 25 MG/ML VIAL SLOW IVP PRN (07:59)
[2020-05-14] MEDS ORDERED: Meperidine HCl/PF 25 MG/ML VIAL SLOW IVP PRN (07:59)
[2020-05-14] MEDS ORDERED: Promethazine HCl 25 MG/ML VIAL IM PRN (07:59)
[2020-05-14] MEDS ORDERED: Ondansetron HCl/PF 4 MG/2 ML Vial IVP PRN (07:59)
--- NOTE | 2020-05-14 08:20 | PRG ---
DATE OF SERVICE: 05/14/2020 HISTORY OF PRESENT ILLNESS: Mr. Gambino is a pleasant 89-year-old male from ground level fall, history of Eliquis for previous heart disease, resting comfortably in bed. The patient presents for left hip fracture, seen by my PA, Bonifacio Kelly, yesterday. He was kept out 24 hours because of the patient's Eliquis. He is alert and oriented, talking to me, in bed. PAST MEDICAL HISTORY: See full attached report for details. OBJECTIVE: VITAL SIGNS: The patient is afebrile. Vital signs are stable. GENERAL: Alert and oriented male, in no acute distress, resting comfortably in bed. EXTREMITIES: Left lower extremity; has pain with internal and external rotation of his left hip. He is neurovascularly intact distally. He has no open wounds. Pain in his left groin. DIAGNOSTIC STUDIES: Left radiographs show a basicervical left femoral neck fracture with lesser tuberosity, 3-part off. IMPRESSION: Basicervical femoral neck fracture/intertrochanteric hip fracture. ASSESSMENT AND PLAN: The patient will be taken to the operating suite for a short TFNA nail for his intertrochanteric hip fracture. I discussed with him the risks and benefits of surgery to include pain, need for transfusion, infection, damage to vital structures, decreased range of motion and strength, and loss of life. The patient will be restarted on his Eliquis upon conclusion. We will follow him in-house. Job ID: [id number]
[2020-05-14 08:26] VITALS: BMI 21.3
[2020-05-14] MEDS ORDERED: PHENYLEPHRINE-NS 100 MCG/ML 10 ML SYRINGE ONE ×2 (09:28→12:23)
[2020-05-14] MEDS ORDERED: SUGAMMADEX SODIUM 200 MG/2 ML VIAL ONE ×2 (09:29)
--- NOTE | 2020-05-14 11:15 | RAD ---
Exam: Left hip 2 views: HISTORY: Status post ORIF left hip COMPARISON: None FINDINGS: Compression screw device in place stabilizing intertrochanteric fracture left hip. No evidence for fracture, dislocation, or other significant acute osseous abnormality. IMPRESSION: Status post ORIF left hip intertrochanteric fracture
[2020-05-14] MEDS ORDERED: Ondansetron PF 4 MG/2 ML Vial ONE (12:23)
[2020-05-14] MEDS ORDERED: ePHEDrine 50 MG/ML VIAL ONE (12:23)
[2020-05-14] MEDS ORDERED: Rocuronium Bromide 10 MG/ML (10ML VIAL) ONE (12:23)
[2020-05-14] MEDS ORDERED: Lidocaine 1% PF 5 ML VIAL ONE (12:23)
[2020-05-14] MEDS ORDERED: Ropivacaine 0.5% HCl/PF (150 MG/30 ML VIAL) ONE (12:23)
[2020-05-14] MEDS ORDERED: Dexamethasone 20 MG/5 ML VIAL ONE (12:23)
[2020-05-14] MEDS ORDERED: PROPOFOL 200 MG/20 ML VIAL ONE (12:23)
[2020-05-14] MEDS: Polyethylene Glycol 3350 17 GM Packet PO SCH (13:43)
[2020-05-14] MEDS: Gabapentin 100 MG CAP PO SCH ×3 (13:43→21:14)
[2020-05-14] MEDS: Famotidine/PF 20 mg/2ml Vial SLOW IVP SCH (13:43)
[2020-05-14] MEDS: DULoxetine 60 MG CAP PO SCH (13:43)
[2020-05-14] MEDS: Senokot S 8.6-50 MG TAB PO SCH ×2 (13:44→21:12)
[2020-05-14] MEDS: Tamsulosin HCl 0.4 MG CAP PO SCH (13:44)
[2020-05-14] MEDS: HYDROcodone/Acetaminophen 10/325 mg Tablet PO PRN ×2 (14:18→21:13)
[2020-05-14] MEDS: Clindamycin/D5W 900 MG in Premix Bag 1 BAG IVPB SCH ×2 (15:32→23:12)
--- NOTE | 2020-05-14 15:46 | PRG ---
DATE OF SERVICE: 05/14/2020 SUBJECTIVE: The patient was seen during morning rounds in the postanesthesia care unit. The patient just returned from the OR after having his left IT femur fracture repair by Dr. Wilson. The patient is currently sleepy, but arousals to voice. The patient had no overnight events. The patient's IV infiltrated in the operating room as he was getting propofol. OBJECTIVE: VITAL SIGNS: Temperature 98.0, pulse 73, respirations 18, SpO2 of 94% on room air, blood pressure 139/77. GENERAL: Well-appearing elderly male, awake, alert, in no distress. HEENT: Unremarkable. RESPIRATORY: Good inspiratory and expiratory effort. Respirations are even and nonlabored. CARDIAC: Regular rate, regular rhythm. ABDOMEN: Soft, nontender. EXTREMITIES: Neurovascularly intact x4. LABORATORY DATA: No new labs. Currently pending. DIAGNOSTICS: No new diagnostics. ASSESSMENT: 1. Status post mechanical fall from standing. 2. Left intertrochanteric femur fracture, status post repair. 3. Long-term anticoagulation use, Eliquis. 4. History of cardiac stents x2, coronary artery disease, hypertension, hyperlipidemia, diabetes, chronic back pain with spinal stenosis, on chronic opioid medications. PLAN: Continue supportive care and pain regimen. Continue diabetic diet as tolerated. Continue maintenance IV fluids until the patient is eating and drinking well. PT and OT to evaluate and treat. Once the patient's hemoglobin is stable, we will restart the patient's Eliquis. The plan was discussed with the attending, who agrees. Job ID: [id number] [facility]TD[facility]
[2020-05-14 16:12] LABS: Hemoglobin 7.8 g/dL (14.0-18.0); Mean Corpuscular Hemoglobin 33.8 pg (27.0-31.0); Mean Platelet Volume 9.1 fL (7.4-10.4); Platelet Count 172 thou/uL (130-400); RBC Distribution Width 12.2 % (11.5-14.5); Red Blood Cell (RBC) Count 2.32 mill/uL (4.70-6.10); White Blood Cell (WBC) Count 7.6 thou/uL (4.8-10.8)
--- NOTE | 2020-05-14 16:16 | RAD ---
EXAM: XR Pelvis AP STANDARD PROVIDED CLINICAL HISTORY: Post operative from internal fixation left hip fracture. COMPARISON: 05/12/2020. FINDINGS: An antegrade intramedullary christian with dynamic compression screw and distal interlocking screw now boogie sfix the previously seen intertrochanteric left femur fracture. There is improvement in alignment of fracture fragments. No hardware complication is seen. Subcutaneous emphysema is seen about the lef t hip with subcutaneous soft tissue swelling also present. Skin clips are seen laterally. Vascular calcifications are again seen in the region of the femoral arteries. No acute fracture or dislocation is present. IMPRESSION: Postoperative changes left hip related to internal fixation of intertrochanteric left hip fracture.
--- NOTE | 2020-05-14 16:17 | RAD ---
Exam: XR Hip Lt 2-3 View PROVIDED CLINICAL HISTORY: Post operative from internal fixation left hip fracture. COMPARISON: 05/12/2020. FINDINGS: An antegrade intramedullary christian with dynamic compression screw and distal interlocking screw now boogie sfix the previously seen intertrochanteric left femur fracture. There is improvement in alignment of fracture fragments. Medial displacement of the lesser trochanter fracture fragment is seen. No jackie dware complication is seen. Subcutaneous emphysema and subcutaneous soft tissue swelling are present about the left hip. Skin clips are seen laterally. Vascular calcifications are again seen in the region of the femoral arteries. No acute fracture or dislocation is present. IMPRESSION: Postoperative changes left hip related to internal fixation of intertrochanteric left hip fracture.
[2020-05-14 16:32] LABS: Anion Gap 16 mmol/L (10-20); BUN (Urea Nitrogen) 13 mg/dL (8.4-25.7); Calc. Creatinine Clearance 52 mL/min (70-130); Calcium 8.5 mg/dL (7.8-10.44); Carbon Dioxide 28 mmol/L (23-31); Chloride 100 mmol/L (98-107); Glucose 309 mg/dL (83-110); Magnesium 1.3 mg/dL (1.6-2.6); Potassium 4.8 mmol/L (3.5-5.1); Sodium 139 mmol/L (136-145)
[2020-05-14 16:33] LABS: Anion Gap 15 mmol/L (10-20); BUN (Urea Nitrogen) 14 mg/dL (8.4-25.7); Calc. Creatinine Clearance 54 mL/min (70-130); Carbon Dioxide 27 mmol/L (23-31); Chloride 100 mmol/L (98-107); Glucose 309 mg/dL (83-110); Potassium 4.9 mmol/L (3.5-5.1); Sodium 137 mmol/L (136-145)
[2020-05-14] MEDS: Ferrous Sulfate 325 MG TAB PO SCH (17:51)
[2020-05-14] MEDS ORDERED: PHOS-NAK 1 PKT PACK PO SCH (20:30)
[2020-05-14] MEDS: Ascorbic Acid 500 mg Chewable Tablet PO SCH (21:15)
[2020-05-14] MEDS: Escitalopram Oxalate 10 mg Tablet PO SCH (21:15)
[2020-05-14] MEDS: Insulin Regular 300 UNITS/3 ML VIAL SC PRN (21:16)
--- NOTE | 2020-05-15 02:02 | PRG ---
DATE OF SERVICE: 05/14/2020 SUBJECTIVE: Patient was seen this evening during rounds. He was lying in bed, resting comfortably and asleep, but no signs of acute distress. He is postoperative day 0, status post left intertrochanteric femur fracture repaired by Dr. Hernandez. Nursing reported no acute events. OBJECTIVE: VITAL SIGNS: Temperature 98.5, pulse 95, respirations 16, oxygen saturation 92% on room air, blood pressure 148/77. ASSESSMENT: 1. Status post multiple mechanical fall, on Eliquis. 2. Left intertrochanteric femur fracture, status post repair. 3. History cardiac stents x2, hypertension, hyperlipidemia, diabetes, chronic opiate use secondary to spinal stenosis. PLAN: Continue current diet and pain regimen. Start physical and occupational therapy. Once the patient is seen by PT, we will ask Case Management to ask for authorization for a snf facility. Job ID: [id number]
[2020-05-15] MEDS: Ibuprofen 200 MG TAB PO SCH ×3 (05:24→21:07)
[2020-05-15] MEDS: Acetaminophen 325 MG TAB PO SCH ×4 (05:24→23:58)
[2020-05-15] MEDS: Insulin Regular 300 UNITS/3 ML VIAL SC PRN (05:45)
[2020-05-15 05:47] LABS: #Lymphocytes 1.5 thou/uL (1.20-3.40); #Monocytes 0.7 thou/uL (0.11-0.59); #Neutrophils 5.3 thou/uL (1.40-6.50); %Basophils 0.3 % (0.0-1.0); %Eosinophils 0.1 % (0.0-10.0); %Lymphocytes 19.9 % (21.0-51.0); %Monocytes 8.9 % (0.0-10.0); %Neutrophils 70.7 % (42.0-75.0); Hemoglobin 6.8 g/dL (14.0-18.0); Mean Corpuscular HGB CONC 32.7 g/dL (32.0-36.0); Platelet Count 187 thou/uL (130-400); RBC Distribution Width 12.3 % (11.5-14.5); Red Blood Cell (RBC) Count 2.05 mill/uL (4.70-6.10); White Blood Cell (WBC) Count 7.4 thou/uL (4.8-10.8)
[2020-05-15 06:11] LABS: Anion Gap 13 mmol/L (10-20); BUN (Urea Nitrogen) 12 mg/dL (8.4-25.7); Calc. Creatinine Clearance 59 mL/min (70-130); Calcium 8.3 mg/dL (7.8-10.44); Carbon Dioxide 29 mmol/L (23-31); Chloride 101 mmol/L (98-107); Glucose 168 mg/dL (83-110); Magnesium 2.3 mg/dL (1.6-2.6); Phosphorus 2.9 mg/dL (2.3-4.7); Potassium 4.3 mmol/L (3.5-5.1); Sodium 139 mmol/L (136-145)
[2020-05-15] MEDS: Polyethylene Glycol 3350 17 GM Packet PO SCH (08:04)
[2020-05-15] MEDS: Tamsulosin HCl 0.4 MG CAP PO SCH (08:06)
[2020-05-15] MEDS: Gabapentin 100 MG CAP PO SCH ×2 (08:06→16:02)
[2020-05-15] MEDS: Famotidine/PF 20 mg/2ml Vial SLOW IVP SCH (08:06)
[2020-05-15] MEDS: DULoxetine 60 MG CAP PO SCH (08:06)
[2020-05-15] MEDS: Escitalopram Oxalate 10 mg Tablet PO SCH ×2 (08:06→21:08)
[2020-05-15] MEDS: Atorvastatin Calcium 40 MG TAB PO SCH (08:06)
[2020-05-15] MEDS: Carvedilol 6.25 MG TAB PO SCH ×2 (08:07→16:02)
[2020-05-15] MEDS: Senokot S 8.6-50 MG TAB PO SCH ×2 (08:07→21:08)
[2020-05-15] MEDS: Ferrous Sulfate 325 MG TAB PO SCH ×2 (08:07→16:02)
[2020-05-15] MEDS: Ascorbic Acid 500 mg Chewable Tablet PO SCH ×2 (08:07→21:07)
[2020-05-15] MEDS: HYDROcodone/Acetaminophen 10/325 mg Tablet PO PRN (16:05)
--- NOTE | 2020-05-15 20:47 | PRG ---
DATE OF SERVICE: 05/15/2020 SUBJECTIVE: The patient was seen during morning rounds, resting comfortably, in no distress. The patient was receiving a unit of packed red blood cells for decreased hemoglobin this morning. The patient had no overnight events. The patient reports that his pain is well controlled at this time. The patient is tolerating a diet. His urinary output is adequate for age and weight. OBJECTIVE: VITAL SIGNS: Temperature 98.0, respirations 16, pulse 79, SpO2 of 97% on room air, blood pressure 134/73. GENERAL: Elderly male, no distress, sleepy, but arouses easily. HEENT: Unremarkable. RESPIRATORY: Good inspiratory and expiratory effort, respirations even and nonlabored. CARDIAC: Regular rate, regular rhythm. EXTREMITIES: Moves all extremities, neurovascularly intact x4. LABORATORY DATA: WBC is 7.4, RBC 2.05, hemoglobin 6.8, hematocrit 20.7, platelets 187. Sodium 139, potassium 4.3, chloride 101, BUN 12, creatinine 0.77, estimated GFR greater than 90, glucose 168, calcium 8.3, phosphorus 2.9, magnesium 2.3. DIAGNOSTICS: There are no new diagnostics to review today. PLAN: Continue supportive care and pain regimen. PT/OT. Continue iron and vitamin C for anemia. Repeat labs in the morning to ensure his hemoglobin is stable. Once the patient's hemoglobin is stable, we will start the patient on chemical VTE prophylaxis. We will continue SCDs at this time. We will also discontinue gabapentin as the patient appears to be sleepier than normal. The plan is discussed with the attending, who agrees. Job ID: [id number]
--- NOTE | 2020-05-16 01:37 | PRG ---
DATE OF SERVICE: 05/15/2020 SUBJECTIVE: The patient was seen this evening during rounds. He was lying in bed, resting comfortably, and asleep with no signs of acute distress. Nursing reported no acute events. OBJECTIVE: VITAL SIGNS: Temperature 98.4, pulse 86, respirations 18, oxygen saturation 92% on room air, and blood pressure 151/78. ASSESSMENT: 1. Status post multiple mechanical falls, on Eliquis. 2. Left intertrochanteric femur fracture, status post repair. 3. History of cardiac stents x2, hypertension, hyperlipidemia, diabetes, and chronic opiate use secondary to spinal stenosis. PLAN: Continue current diet and pain regimen. Continue physical and occupational therapy. The patient had received 1 unit of packed cells today for acute blood loss anemia on chronic anemia. We will follow up CBC in the morning. Start patient's isosorbide mononitrate and losartan today with hold parameters. He is pending discharge to a senior living facility. Job ID: [id number]
[2020-05-16] MEDS: HYDROcodone/Acetaminophen 10/325 mg Tablet PO PRN ×4 (03:31→20:43)
[2020-05-16 05:42] LABS: Anion Gap 15 mmol/L (10-20); BUN (Urea Nitrogen) 14 mg/dL (8.4-25.7); Calc. Creatinine Clearance 59 mL/min (70-130); Calcium 8.2 mg/dL (7.8-10.44); Carbon Dioxide 24 mmol/L (23-31); Chloride 102 mmol/L (98-107); Glucose 149 mg/dL (83-110); Magnesium 1.7 mg/dL (1.6-2.6); Phosphorus 2.4 mg/dL (2.3-4.7); Sodium 137 mmol/L (136-145)
[2020-05-16 05:52] LABS: #Eosinphils 0.1 thou/uL (0.0-0.7); #Lymphocytes 1.7 thou/uL (1.20-3.40); #Monocytes 0.8 thou/uL (0.11-0.59); #Neutrophils 6.4 thou/uL (1.40-6.50); %Basophils 0.5 % (0.0-1.0); %Lymphocytes 18.7 % (21.0-51.0); %Neutrophils 70.9 % (42.0-75.0); Hemoglobin 8.1 g/dL (14.0-18.0); Mean Corpuscular HGB CONC 32.7 g/dL (32.0-36.0); Mean Corpuscular Hemoglobin 31.8 pg (27.0-31.0); Mean Corpuscular Volume 97.2 fL (78.0-98.0); Mean Platelet Volume 8.9 fL (7.4-10.4); Platelet Count 193 thou/uL (130-400); RBC Distribution Width 14.2 % (11.5-14.5); Red Blood Cell (RBC) Count 2.55 mill/uL (4.70-6.10); White Blood Cell (WBC) Count 9.1 thou/uL (4.8-10.8)
[2020-05-16] MEDS: Acetaminophen 325 MG TAB PO SCH ×4 (05:55→23:50)
[2020-05-16] MEDS: Insulin Regular 300 UNITS/3 ML VIAL SC PRN (05:55)
--- NOTE | 2020-05-16 05:55 | OP ---
DATE OF PROCEDURE: 05/14/2020 PREOPERATIVE DIAGNOSIS: Left basicervical/intertrochanteric hip fracture. POSTOPERATIVE DIAGNOSIS: Left basicervical/intertrochanteric hip fracture. PROCEDURE PERFORMED: Left trochanteric fixation nail for intertrochanteric basicervical fracture. GAS SPECIALIST: Austin Kelly PA-C ANESTHESIA: Dr. Guy/Dr. Jessica. The patient received a general intubation. ESTIMATED BLOOD LOSS: Less than 100 mL. TOURNIQUET TIME: None. IMPLANTS: The patient had a Synthes 12 x 170 mm TFNA nail with a 95 mm fenestrated screw and a 5 mm x 36 mm locking screw. ANTIBIOTICS: Clindamycin 900, Levaquin 500. COMPLICATIONS: Difficulty with IV placement. HISTORY OF PRESENT ILLNESS: Mr. Gambino is an 89-year-old male who presents with left hip fracture. The patient sustained a ground level fall, sustained a basicervical femoral neck fracture. I discussed with him the risks and benefits of a left TFNA trochanteric fixation nail. I discussed the risks and benefits of surgery to include pain, scar, bleeding, infection, damage to vital structures, decreased range of motion and strength, need for further surgeries, loss of life or limb. The patient elects to proceed with left fixation. The patient understood the risks and benefits, elected to proceed. DESCRIPTION OF PROCEDURE: After time-out, the patient's left lower extremity was prepped and draped in sterile fashion. Put in traction and reduced the hip, had kind of a high valgus angle. Also manipulated the bone into a position that we liked. After reducing on the AP and lateral radiographs, we prepped and draped the left hip, made stab incisions proximal to the greater trochanter, placed our guide pin under fluoroscopic guidance. We then placed our opening reamer and passed a 12 mm nail, looked under AP and lateral radiographs to place our center guidepin which was anteriorly and pushed on the patient's femoral head and neck to help with apex anterior deformity. We placed our guide pin and took us a couple passes to get the pin in the position. We liked this position center-center as well as anterior-posterior within the neck. We overdrilled and we placed a 95 mm screw compressing the bone into place and compressed it down, allowed to compress in position, we liked. We then washed and then we moved distally and we placed a screw, drilled bicortically, placed a 36 mm x 5 mm screw distally, washed. We then closed our holes with 0, 2-0, and skin georgi. The patient will be weightbearing as tolerated, will receive 24 hours antibiotics, will be started on his Eliquis. The patient will need disposition. Job ID: [id number] MTDD
[2020-05-16] MEDS: Ibuprofen 200 MG TAB PO SCH ×3 (05:56→20:51)
[2020-05-16] MEDS: Carvedilol 6.25 MG TAB PO SCH ×2 (06:59→16:54)
[2020-05-16] MEDS: Losartan 25 MG TAB PO SCH (07:00)
[2020-05-16] MEDS ORDERED: Magnesium 2 GM/50 ML 2 GM in Premix Bag 1 BAG IVPB SCH (08:00)
[2020-05-16] MEDS: Ascorbic Acid 500 mg Chewable Tablet PO SCH ×2 (08:32→20:38)
[2020-05-16] MEDS: Atorvastatin Calcium 40 MG TAB PO SCH (08:32)
[2020-05-16] MEDS: Ferrous Sulfate 325 MG TAB PO SCH ×2 (08:32→16:54)
[2020-05-16] MEDS: DULoxetine 60 MG CAP PO SCH (08:32)
[2020-05-16] MEDS: Famotidine/PF 20 mg/2ml Vial SLOW IVP SCH (08:32)
[2020-05-16] MEDS: Senokot S 8.6-50 MG TAB PO SCH ×2 (08:32→20:38)
[2020-05-16] MEDS: Escitalopram Oxalate 10 mg Tablet PO SCH ×2 (08:32→20:38)
[2020-05-16] MEDS: Tamsulosin HCl 0.4 MG CAP PO SCH (08:32)
[2020-05-16] MEDS: Polyethylene Glycol 3350 17 GM Packet PO SCH (08:33)
[2020-05-16] MEDS ORDERED: Bisacodyl 10 MG SUPP PR SCH (15:30)
--- NOTE | 2020-05-16 18:46 | PRG ---
DATE OF SERVICE: SUBJECTIVE: The patient was seen during morning rounds, awake, alert, ambulating with physical therapy. The patient's pain is controlled at this time. The patient voices no complaints or concerns. The patient had no overnight events. The patient is tolerating his diabetic diet. The patient's urinary output is adequate for age and weight. OBJECTIVE: VITAL SIGNS: Blood pressure 122/69, pulse 93, temperature 97.9, SpO2 of 96% on room air, and respirations 16. GENERAL: Well-appearing elderly male, awake, alert, in no distress. HEENT: Unremarkable. RESPIRATORY: Good inspiratory and expiratory effort, respirations nonlabored. CARDIAC: Regular rate, regular rhythm. EXTREMITIES: Moves all extremities, neurovascularly intact x4. LABORATORY DATA: RBC 2.55, hemoglobin 8.1, hematocrit 24.8, platelets 193. Sodium 137, potassium 4.0, BUN 14, creatinine 0.77, estimated GFR greater than 90, glucose 114, phosphorus 2.4, magnesium 1.3. DIAGNOSTICS: There are no new diagnostics to review today. ASSESSMENT: 1. Status post mechanical fall from standing. 2. Left intertrochanteric femur fracture, status post repair. 3. Long-term anticoagulation use, Eliquis. 4. Postoperative anemia, stable. 5. History of cardiac stent x2; coronary artery disease; hypertension; hyperlipidemia; diabetes; chronic back pain with spinal stenosis, on chronic opioid medications. PLAN: Continue diabetic diet, pain regimen. Increase physical and occupational therapy. We will restart the patient's Eliquis tomorrow if his hemoglobin remains stable. The patient is pending placement to snf facility versus home with home health. If he goes home he will need a home hospital bed as he has decreased mobility due to advanced age, chronic back and neck pain with spinal stenosis and now a left hip fracture. We will replace magnesium. Job ID: [id number] [facility]
[2020-05-16] MEDS: Famotidine 20 MG TAB PO SCH (20:38)
--- NOTE | 2020-05-16 23:52 | PRG ---
DATE OF SERVICE: 05/16/2020 SUBJECTIVE: Patient was seen this evening during rounds. He was lying in bed, resting comfortably, and asleep with no signs of acute distress. Nursing reported that the patient is intermittently confused but that he is reoriented and resting now. OBJECTIVE: VITAL SIGNS: Temperature 98.1, pulse 80, respirations 16, oxygen saturation 94% on room air, blood pressure 163/77. ASSESSMENT: 1. Status post multiple mechanical falls, on Eliquis. 2. Left intertrochanteric femur fracture, status post repair. 3. History of cardiac stents x2, hypertension, hyperlipidemia, diabetes, chronic opioid use due to spinal stenosis. PLAN: Continue current diet and pain regimen. Continue physical and occupational therapy. Repeat blood work in the morning. The patient did receive a unit of blood yesterday. We have not started him on DVT prophylaxis or full-dose anticoagulation. We will consider those tomorrow if his hemoglobin is stable, also something to consider is stopping the patient's Eliquis completely as he has had multiple falls recently and is at a higher risk for having a devastating traumatic brain injury. I do understand that he was started on Eliquis more recently, status post cardiac stent. Trauma Team to discuss tomorrow and make recommendations to patient and behavioral science chair. Job ID: [id number]
[2020-05-17] MEDS: HYDROcodone/Acetaminophen 10/325 mg Tablet PO PRN ×4 (04:18→23:17)
[2020-05-17] MEDS: Acetaminophen 325 MG TAB PO SCH ×4 (05:04→23:30)
[2020-05-17] MEDS: Ibuprofen 200 MG TAB PO SCH ×3 (05:04→21:18)
[2020-05-17 06:13] LABS: Hemoglobin 7.7 g/dL (14.0-18.0); Mean Corpuscular HGB CONC 33.3 g/dL (32.0-36.0); Mean Corpuscular Hemoglobin 32.4 pg (27.0-31.0); Mean Corpuscular Volume 97.1 fL (78.0-98.0); Mean Platelet Volume 8.6 fL (7.4-10.4); Platelet Count 222 thou/uL (130-400); Red Blood Cell (RBC) Count 2.38 mill/uL (4.70-6.10); White Blood Cell (WBC) Count 7.1 thou/uL (4.8-10.8)
[2020-05-17 06:33] LABS: Anion Gap 13 mmol/L (10-20); BUN (Urea Nitrogen) 13 mg/dL (8.4-25.7); Calc. Creatinine Clearance 59 mL/min (70-130); Calcium 8.4 mg/dL (7.8-10.44); Carbon Dioxide 29 mmol/L (23-31); Chloride 101 mmol/L (98-107); Glucose 124 mg/dL (83-110); Magnesium 1.8 mg/dL (1.6-2.6); Potassium 3.6 mmol/L (3.5-5.1); Sodium 139 mmol/L (136-145)
[2020-05-17] MEDS: Escitalopram Oxalate 10 mg Tablet PO SCH ×2 (07:51→21:17)
[2020-05-17] MEDS: Ferrous Sulfate 325 MG TAB PO SCH ×2 (07:51→17:32)
[2020-05-17] MEDS: Ascorbic Acid 500 mg Chewable Tablet PO SCH ×2 (07:52→21:17)
[2020-05-17] MEDS: Famotidine 20 MG TAB PO SCH ×2 (07:52→21:17)
[2020-05-17] MEDS: Losartan 25 MG TAB PO SCH (07:52)
[2020-05-17] MEDS: Atorvastatin Calcium 40 MG TAB PO SCH (07:52)
[2020-05-17] MEDS: Carvedilol 6.25 MG TAB PO SCH ×2 (07:52→17:32)
[2020-05-17] MEDS: Tamsulosin HCl 0.4 MG CAP PO SCH (07:52)
[2020-05-17] MEDS: Senokot S 8.6-50 MG TAB PO SCH ×2 (07:53→21:18)
[2020-05-17] MEDS: Polyethylene Glycol 3350 17 GM Packet PO SCH (07:53)
[2020-05-17] MEDS: DULoxetine 60 MG CAP PO SCH (08:06)
[2020-05-17] MEDS: Apixaban 2.5 MG TAB PO SCH ×2 (10:46→21:17)
[2020-05-17] MEDS: Insulin Regular 300 UNITS/3 ML VIAL SC PRN (11:44)
--- NOTE | 2020-05-17 12:49 | PRG ---
DATE OF SERVICE: 05/17/2020 SUBJECTIVE: Amanda is an 89-year-old male who is postop day 3 from a left intertrochanteric hip fracture treated with short nail fixation. He is doing relatively well, and he is very desirous of going home. He inquires about this since he tells me he will have his sons available to him should he need. Therapy notes demonstrate he has ambulated up to 170-feet with standby assist. PHYSICAL EXAMINATION: Incisions are clean. No strike through. No erythema. He is neurovascularly intact. No malrotation. LABORATORY DATA: Hemoglobin and hematocrit 7.7 and 23.1. He has been order to receive 1 unit of packed red blood cells today. IMPRESSION: 1. 89-year-old male postop day 3 left hip intertrochanteric fracture treated with short nail fixation. 2. Blood loss anemia. PLAN: Continue current care, blood transfusion as noted, and agree with above. Follow for hemorrhage and pain control. DISPOSITION: In terms of discharge to home will be determined based on patient's performance after blood. Job ID: [id number]
--- NOTE | 2020-05-17 18:25 | DIS ---
DATE OF ADMISSION: 05/12/2020 DATE OF DISCHARGE: 05/17/2020 This is Norma Cornejo NP dictating a report for Alli Angel DO. CONSULTS: Orthopedic Surgery, Dr. Hernandez. PROCEDURES: Left intertrochanteric fixation nail for left intertrochanteric basicervical fracture by Dr. Wilson. PRIMARY DIAGNOSES: 1. Mechanical fall, on Eliquis. 2. Left intertrochanteric femur fracture, status post repair. SECONDARY DIAGNOSES: Coronary artery disease, cardiac stents x2, hypertension, hyperlipidemia, diabetes, and chronic back pain with spinal stenosis, on chronic opioid pain medications. DISCHARGE MEDICATIONS: 1. Acetaminophen 325 mg p.o. q.6 hours. 2. Eliquis 2.5 mg p.o. b.i.d. 3. Vitamin C 500 mg p.o. b.i.d. 4. Atorvastatin 40 mg p.o. daily. 5. Carvedilol 6.25 mg p.o. b.i.d. 6. Duloxetine 60 mg p.o. daily. 7. Escitalopram 10 mg p.o. b.i.d. 8. Ferrous sulfate 325 mg p.o. b.i.d. with meals. 9. Isosorbide 30 mg p.o. daily. 10. Losartan 100 mg p.o. daily. 11. MiraLAX as needed for constipation. 12. Ranolazine 1000 mg p.o. b.i.d. 13. Senokot as needed for constipation. 14. Flomax 0.4 mg p.o. daily. 15. Continue Duragesic patch 25 mcg transdermal q.3 days. 16. Gemfibrozil 600 mg p.o. b.i.d. 17. Hydrocodone 10/325 two tabs p.o. q.6 hours p.r.n. pain. 18. Continue metformin 500 mg p.o. b.i.d. 19. Robaxin 750 mg p.o. 3 times a day p.r.n. 20. Narcan 4 mg nasal spray p.r.n. 21. Nitroglycerin 0.4 mg sublingual q.5 minutes chest pain p.r.n. 22. Nystatin powder as needed. No discontinued medications. HISTORY OF PRESENT ILLNESS AND HOSPITAL COURSE: This is an 89-year-old gentleman who presented from the [facility]. The patient had a mechanical fall while in the bathroom. He reports that his leg gave out suddenly causing him to fall on his right side. The patient denies hitting his head or losing consciousness. The patient has chronic back pain with spinal stenosis and occasionally has some lower extremity weakness. The patient denies any lightheadedness, nausea, vomiting, chest pain, or shortness of breath before the event. The patient's GCS was 15. The patient was evaluated and found to have a left intertrochanteric femur fracture. The patient's pain was well controlled pre and postop. The patient tolerated a diabetic diet during his hospital stay. The patient's home pain regimen was continued. The patient did have to receive 1 unit of packed red blood cells on postop day 1 for a hemoglobin of 6.8. His hemoglobin has been stable since and has been restarted on his home Eliquis. On the day of discharge, the patient was examined by Dr. Angel. The patient was ambulating safely with physical therapy using a walker. The patient's vital signs were stable and his exam was unremarkable including GI and cardiopulmonary exam. The patient was deemed stable for discharge home with home health PT, OT, and long term. The patient has a person who comes to help him every day for the last 12 years. This person assist him with any of his needs including housework and cooking all of his meals. The patient also has two sons who live on the same property right next door. DISPOSITION: Stable. DISCHARGE INSTRUCTIONS: 1. Location, home. 2. Diet, diabetic diet. 3. Activity; orthopedic limitations, weightbearing as tolerated. 4. A hospital bed has been requested as the patient is advanced age with decreased mobility even more now with his recent fracture. 5. Followup: Follow up with primary care physician in 7 days to manage blood pressure and pain medications. 6. Follow up with Orthopedic Surgery, Dr. Wilson in the next 10 to 14 days. No need to follow up with Trauma Services, call for any questions. This is just a summary of the patient's hospital stay, please see the entire chart for details. Job ID: [id number] MTDD
--- NOTE | 2020-05-18 02:41 | PRG ---
DATE OF SERVICE: 05/17/2020 SUBJECTIVE: The patient was seen this evening during rounds. He is resting comfortably in bed and asleep with no signs of acute distress. Nursing reported no acute events. OBJECTIVE: VITAL SIGNS: Temperature 98.4, pulse 79, respirations 21, oxygen saturation 95% on room air, blood pressure 121/58. ASSESSMENT: 1. Status post multiple mechanical falls on Eliquis. 2. Left intertrochanteric femur fracture, status post repair. 3. History of cardiac stents, hypertension, hyperlipidemia, diabetes, chronic opiate use secondary to spinal stenosis. PLAN: Continue current diet and pain regimen. Continue physical and occupational therapy. The patient restarted on his home Eliquis. Repeat blood work in the morning. He was discharged earlier today. However, when his family was contacted to come pick him up, they said they had already left and would come back tomorrow. I did advise the nurse to call the family in the morning and come pick the patient up as he is discharged. He will follow up in clinic. If there are any new concerns in the meantime, we will treat them. Job ID: [id number]
[2020-05-18 05:43] LABS: Hemoglobin 7.7 g/dL (14.0-18.0); Mean Corpuscular HGB CONC 32.5 g/dL (32.0-36.0); Mean Corpuscular Hemoglobin 31.9 pg (27.0-31.0); Mean Platelet Volume 8.7 fL (7.4-10.4); Platelet Count 229 thou/uL (130-400); RBC Distribution Width 14.1 % (11.5-14.5); White Blood Cell (WBC) Count 6.2 thou/uL (4.8-10.8)
[2020-05-18] MEDS: HYDROcodone/Acetaminophen 10/325 mg Tablet PO PRN (06:07)
[2020-05-18] MEDS: Ibuprofen 200 MG TAB PO SCH (06:44)
[2020-05-18] MEDS: Acetaminophen 325 MG TAB PO SCH (06:44)
[2020-05-18] MEDS: Famotidine 20 MG TAB PO SCH (08:29)
[2020-05-18] MEDS: Senokot S 8.6-50 MG TAB PO SCH (08:29)
[2020-05-18] MEDS: Ferrous Sulfate 325 MG TAB PO SCH (08:32)
[2020-05-18] MEDS: Atorvastatin Calcium 40 MG TAB PO SCH (08:32)
[2020-05-18] MEDS: Ascorbic Acid 500 mg Chewable Tablet PO SCH (08:32)
[2020-05-18] MEDS: Carvedilol 6.25 MG TAB PO SCH (08:32)
[2020-05-18] MEDS: Polyethylene Glycol 3350 17 GM Packet PO SCH (08:32)
[2020-05-18] MEDS: Tamsulosin HCl 0.4 MG CAP PO SCH (08:32)
[2020-05-18] MEDS: Escitalopram Oxalate 10 mg Tablet PO SCH (08:32)
[2020-05-18] MEDS: DULoxetine 60 MG CAP PO SCH (08:32)
[2020-05-18] MEDS: Losartan 25 MG TAB PO SCH (08:37)
[2020-05-18] MEDS: Apixaban 2.5 MG TAB PO SCH (08:38)
[2020-05-18 08:50] VITALS: TEMP 98.5
[2020-05-18 10:17] VITALS: BP 138/72
== END 2020-05-18 12:43 | disposition home health service (06) | DRG 481 ==
LOC: ERS 22:14 → SURG A 23:23
PROVIDERS: ADMIT Surgery; ATTEND Surgery
PROC: 0QH736Z Insertion of Intramedullary Internal Fixation Device into Left Upper Femur, Percutaneous Approach (ICD-10-PCS; principal; 2020-05-14)
PROC: 30233N1 Transfusion of Nonautologous Red Blood Cells into Peripheral Vein, Percutaneous Approach (ICD-10-PCS; 2020-05-15)
DX: S72.142A Displaced intertrochanteric fracture of left femur, initial encounter for closed fracture (principal); F11.20 Opioid dependence, uncomplicated; D62 Acute posthemorrhagic anemia; W18.30XA Fall on same level, unspecified, initial encounter; Z20.822 Contact with and (suspected) exposure to COVID-19; I25.10 Atherosclerotic heart disease of native coronary artery without angina pectoris; I10 Essential (primary) hypertension; E78.5 Hyperlipidemia, unspecified; M54.9 Dorsalgia, unspecified; M48.00 Spinal stenosis, site unspecified; G89.29 Other chronic pain; E11.51 Type 2 diabetes mellitus with diabetic peripheral angiopathy without gangrene; N40.0 Benign prostatic hyperplasia without lower urinary tract symptoms; Z95.5 Presence of coronary angioplasty implant and graft; Y92.012 Bathroom of single-family (private) house as the place of occurrence of the external cause; Z79.82 Long term (current) use of aspirin; Z79.01 Long term (current) use of anticoagulants; Z79.84 Long term (current) use of oral hypoglycemic drugs; Z79.899 Other long term (current) drug therapy
CPT/HCPCS: 36415; 36416; 36430; 70450; 71045; 72128; 72131; 72170; 76000; 80048; 80053; 83735; 84100; 85025; 85027; 85610; 85730; 86850; 86900; 86901; 93005; 93010; 96374; 96376; C1713; G0390; J0360; J1100; J1644; J1815; J1956; J2270; J2405; J2704; J2795; J3010; J3475; J3490; P9016; S0020; S0028; U0002

== ENCOUNTER 2020-05-25 15:09 | Inpatient (IN) | payer MEDICARE ==
[~2020-05-25 15:09] MED LIST: Iopamidol-370 76% 500 ML 1 ML ONE
--- NOTE | 2020-05-25 16:17 | RAD ---
PORTABLE CHEST: 05/25/20 HISTORY: Shortness of breath. COMPARISON: 05/12/20 FINDINGS: New hazy infiltrate in the right mid lung when compared to prior study. Heart size within normal rang e and stable. Vascular markings within normal range. IMPRESSION: There is new hazy infiltrate in the right mid lung. POS: AH
[2020-05-25 16:51] LABS: #Lymphocytes 1.9 thou/uL (1.20-3.40); #Monocytes 0.5 thou/uL (0.11-0.59); #Neutrophils 3.3 thou/uL (1.40-6.50); %Basophils 0.2 % (0.0-1.0); %Eosinophils 0.8 % (0.0-10.0); %Lymphocytes 32.5 % (21.0-51.0); %Monocytes 9.4 % (0.0-10.0); %Neutrophils 57.1 % (42.0-75.0); Hemoglobin 8.1 g/dL (14.0-18.0); Mean Corpuscular Hemoglobin 32.5 pg (27.0-31.0); Mean Platelet Volume 8.4 fL (7.4-10.4); Platelet Count 379 thou/uL (130-400); RBC Distribution Width 15.2 % (11.5-14.5); White Blood Cell (WBC) Count 5.7 thou/uL (4.8-10.8)
[2020-05-25 17:41] LABS: ALT (SGPT) 11 U/L (8-55); AST (SGOT) 36 U/L (5-34); Albumin 3.5 g/dL (3.4-4.8); Alkaline Phosphatase 98 U/L (40-110); Anion Gap 18 mmol/L (10-20); BUN (Urea Nitrogen) 14 mg/dL (8.4-25.7); Bilirubin, Total 0.9 mg/dL (0.2-1.2); Calc. Creatinine Clearance 0 mL/min (70-130); Calcium 8.2 mg/dL (7.8-10.44); Carbon Dioxide 24 mmol/L (23-31); Chloride 98 mmol/L (98-107); Glucose 116 mg/dL (83-110); Lipase 4 U/L (8-78); Magnesium 1.6 mg/dL (1.6-2.6); Potassium 5.6 mmol/L (3.5-5.1); Protein, Total 6.5 g/dL (5.8-8.1); Sodium 134 mmol/L (136-145)
--- NOTE | 2020-05-25 18:28 | CT ---
CT angiogram chest: 05/25/2020 COMPARISON: None HISTORY: Evaluate for pulmonary arterial embolism, chest pain and hypoxia TECHNIQUE: Axial CT imaging at 2.5 mm intervals from the thoracic inlet through the upper abdomen wit h IV contrast using CT angiogram protocol. Coronal and oblique sagittal 3-D reformatted imaging obtained. FINDINGS: Imaged upper abdomen demonstrates granulomatous calcification within the liver and spleen. There is scattered atherosclerotic calcification of the abdominal aorta and its branches. Hyperdensity within the gallbladder suggest cholelithiasis. Trace pleural fluid on the right. No left-sided pleural effusion. No significant pericardial or media stinal fluid. No axillary lymphadenopathy. Nonspecific mild bilateral hilar lymphadenopathy is noted, measuring 1.4 cm short axis dimension on t he right and 9-10 mm short axis dimension on the left. Mildly enlarged subcarinal lymph node noted measuring in the 1.4 cm range. Mildly prominent AP window and right paratracheal lymph nodes are note d measuring up to 1.3 cm. There is scattered atherosclerotic calcification of the thoracic aorta. There is extensive coronary a rterial calcification. There is good opacification of the pulmonary arterial vasculature. There is no evidence for acute pul monary arterial embolism. There are extensive emphysematous changes noted bilaterally with pulmonary hyperinflation suggesting air trapping. There is asymmetric prominent linear interstitial density with superimposed groundglass opacity/airspace disease within the posterior inferior aspect of the right upper lobe. Th ere is mild bronchial wall thickening and bronchiectatic change within bilateral lower lobes. Mild peripheral reticular nodular densities are noted within the superior segment of the right lower lobe. Peripheral linear increased reticulonodular density is noted within the inferior posterior bilateral lower lobes, right greater than left. There is a nodule in the left lower lobe on axial image 98 measuring 5-6 mm, nonspecific. Review of [facility] osseous structures demonstrates no worrisome lytic or blastic bone lesions. IMPRESSION: No evidence for pulmonary arterial embolism Extensive coronary arterial calcification. Emphysematous changes are noted bilaterally. There is prominent interstitial and groundglass airspace disease within the right upper lobe which may signify infectious pneumonitis or aspiration. Similar less conspicuous findings are noted within the lung bases, right greater than left. Bronchial wall thickening is noted as well. Findings could potentially represent Covid pneumonia in the proper clinical setting. Recommend short-term follow-up imaging following treatment to document resol ution.
[2020-05-25] MEDS ORDERED: cefTRIAXone\\ROCEPHIN 1 GM VIAL ONE (18:32)
[2020-05-25 19:21] LABS: Bacteria/HPF None Seen HPF (None Seen); Bilirubin Negative (Negative); Blood, Urine 1+ (Negative); Clarity Clear (Clear); Glucose, Urine (Dipstick) Normal (Negative); Ketone, Urine Negative (Negative); Leukocyte Negative Leu/uL (Negative); Nitrite Negative (Negative); Protein, Urine (Dipstick) Negative (Neg-Trace); RBC/HPF 21-50 HPF (0-3); Specific Gravity, Urine 1.024 (1.002-1.036); Squamous Epithelial None Seen HPF (0-3); Urobilinogen Normal mg/dL (Less than 2); WBC/HPF 0-3 HPF (0-3)
[2020-05-25] MEDS ORDERED: Azithromycin 500 MG VIAL ONE (19:56)
[2020-05-25 20:56] VITALS: BMI 21.7
[2020-05-25] MEDS ORDERED: Promethazine HCl 12.5 MG in Sodium Chloride 0.9% 50 ML IVPB PRN (21:07)
[2020-05-25] MEDS ORDERED: hydrALAZINE 20 MG/ML VIAL SLOW IVP PRN (21:07)
[2020-05-25] MEDS ORDERED: Ondansetron PF 4 MG/2 ML Vial IVP PRN (21:07)
[2020-05-25] MEDS ORDERED: HYDROcodone/Acetaminophen 5/325 mg Tablet PO PRN (21:07)
[2020-05-25] MEDS ORDERED: cloNIDine 0.1 MG TAB PO PRN (21:07)
[2020-05-25] MEDS ORDERED: Acetaminophen 325 MG TAB PO PRN (21:07)
[2020-05-25] MEDS ORDERED: Guaifenesin DM 100-10/5 ML UDCUP PO PRN (21:07)
--- NOTE | 2020-05-25 21:13 | PDOC.HHP ---
Hospitalist HPI - History of Present Illness Shortness of breath History of Present Illness: Patient is an 89 year old male with PMH HTN, T2DM who presents to hospital for presyncopal episode at home, patient was with HH nurse and experienced episode of lightheadedness and almost fell down. he recently had L hip surgery in this hospital. EMS found patient BP low in 60s, 99/52 in EMS on arrival, satting 91% on RA and does not wear o2 at home, he lives alone and family comes to check on him. In ED, d dimer 3.8, K 5.6, na 3.4, CTA chest performed and revealed groundglass opacities in RUL, lung bases, bronchial wall thickenign suspisious for pneumonia and possible covid. patient admitted for further workup and care. Hospitalist ROS - Review of Systems Constitutional: denies: fever, chills, sweats, weakness, malaise, other Eyes: denies: pain, vision change, conjunctivae inflammation, eyelid inflammation, redness, other ENT: denies: ear pain, ear discharge, nose pain, nose discharge, nose congestion, mouth pain, mouth swelling, throat pain, throat swelling, other Respiratory: reports: cough, shortness of breath, pleuritic pain, sputum. denies: dry, hemoptysis, SOB with excertion, wheezing, other Cardiovascular: denies: chest pain, palpitations, orthopnea, paroxysmal noc. dyspnea, edema, light headedness, other Gastrointestinal: denies: nausea, vomiting, abdominal pain, diarrhea, constipation, melena, hematochezia, other Genitourinary: denies: dysuria, frequency, incontinence, hematuria, retention, other Musculoskeletal: denies: neck pain, shoulder pain, arm pain, back pain, hand pain, leg pain, foot pain, other Skin: denies: rash, lesions, dilip, bruising, other Neurological: denies: weakness, numbness, incoordination, change in speech, confusion, seizures, other All other systems reviewed; all pertinent +/- noted in HPI/Subj - Medication Medications: Aspirin Childrens SunMay 25, 2020 15:22 ALBERT Lucio Lacee TABLET, CHEWABLE : Strength - 81 mg : ORAL Patient Dose: 1 tab(s) Oral once a day. metFORMIN Tue May 25, 2020 15:22 Lucio, RN, Tia TABLET : Strength - 500 mg : ORAL Patient Dose: 1000 mg Oral 2 times a day. Eliquis SunMay 25, 2020 15:22 Lucio, RN, Tia tablet : Strength - 5 mg : ORAL Patient Dose: 25 mg Oral.UNSURE OF HOW OFTEN MED IS TAKEN. atorvastatin SunMay 25, 2020 15:24 Lucio, RN, Tia TABLET : Strength - 40 mg : ORAL Patient Dose: 1 tab(s) Oral once a day. carvedilol SunMay 25, 2020 15:24 Lucio, RN, Tia TABLET : Strength - 6.25 mg : ORAL Patient Dose: 1 tab(s) Oral 2 times a day. gemfibrozil SunMay 25, 2020 15:24 Lucio, RN, Tia TABLET : Strength - 600 mg : ORAL Patient Dose: 1 tab(s) Oral once a day. isosorbide mononitrate SunMay 25, 2020 15:24 Lucio, RN, Tia TABLET, EXTENDED RELEASE 24 HR : Strength - 60 mg : ORAL Patient Dose: 0.5 tab(s) Oral once a day (in the morning). losartan SunMay 25, 2020 15:24 Lucio, RN, Tia TABLET : Strength - 100 mg : ORAL Patient Dose: 1 tab(s) Oral once a day. tamsulosin SunMay 25, 2020 15:24 Lucio, RN, Tia CAPSULE, EXT RELEASE 24 HR : Strength - 0.4 mg : ORAL Patient Dose: 1 tab(s) Oral once a day. DULoxetine SunMay 25, 2020 15:25 Lucio, RN, Tia capsule,delayed release(DR/EC) : Strength - 60 mg : ORAL Patient Dose: 1 tab(s) Oral.UNSURE OF HOW OFTEN MED IS TAKEN. ranolazine SunMay 25, 2020 15:26 Lucio, RN, Tia tablet extended release 12 hr : Strength - 1,000 mg : ORAL Patient Dose: 1 tab(s) Oral.UNSURE OF HOW OFTEN MED IS TAKEN. Hospitalist History - Past Medical History Musculoskeletal: reports: Chronic low back pain Other Medical History: HTN, DM - Past Surgical History Other Surgical History: hip surgery 2 stents - Family History Family History: reports: no pertinent history - Social History Alcohol: reports: None Drugs: reports: none - Exam General Appearance: NAD, awake alert Eye: PERRL, anicteric sclera ENT: normocephalic atraumatic, no oropharyngeal lesions, moist mucosa Neck: supple, symmetric, no JVD, no thyromegaly, no lymphadenopathy, no carotid bruit Heart: RRR, no murmur, no gallops, no rubs, normal peripheral pulses Respiratory: CTAB, no wheezes, no rales, no ronchi, normal chest expansion, no tachypnea, normal percussion Gastrointestinal: soft, non-tender, non-distended, normal bowel sounds, no palpable masses, no hepatomegaly, no splenomegaly, no bruit Extremities: no cyanosis, no clubbing, no edema Skin: normal turgor, no lesions, no rashes Neurological: cranial nerve grossly intact, normal sensation to touch, no weakness, no focal deficits, no new deficit Musculoskeletal: normal tone, normal strength, no muscle wasting Psychiatric: normal affect, normal behavior, A&O x 3 Hospitalist Results - Labs Result Diagrams: 05/25/20 16:35 05/25/20 16:35 Lab results: WBC 5.7 thou/uL (4.8-10.8) 05/25/20 16:35 Hgb 8.1 g/dL (14.0-18.0) L 05/25/20 16:35 Hct 25.4 % (42.0-52.0) L 05/25/20 16:35 MCV 101.0 fL (78.0-98.0) H 05/25/20 16:35 Plt Count 379 thou/uL (130-400) 05/25/20 16:35 Neutrophils % 57.1 % (42.0-75.0) 05/25/20 16:35 Sodium 134 mmol/L (136-145) L 05/25/20 16:35 Potassium 5.6 mmol/L (3.5-5.1) H 05/25/20 16:35 Chloride 98 mmol/L (98-107) 05/25/20 16:35 Carbon Dioxide 24 mmol/L (23-31) 05/25/20 16:35 BUN 14 mg/dL (8.4-25.7) 05/25/20 16:35 Creatinine 0.89 mg/dL (0.7-1.3) 05/25/20 16:35 Glucose 116 mg/dL (83-110) H 05/25/20 16:35 Lactic Acid 0.9 mmol/L (0.5-2.2) 05/25/20 18:33 Calcium 8.2 mg/dL (7.8-10.44) 05/25/20 16:35 Total Bilirubin 0.9 mg/dL (0.2-1.2) 05/25/20 16:35 AST 36 U/L (5-34) H 05/25/20 16:35 ALT 11 U/L (8-55) 05/25/20 16:35 Alkaline Phosphatase 98 U/L (40-110) 05/25/20 16:35 Troponin I 0.026 ng/mL (< 0.028) 05/25/20 16:35 B-Natriuretic Peptide 263.4 pg/mL (0-100) H 05/25/20 16:35 Serum Total Protein 6.5 g/dL (5.8-8.1) 05/25/20 16:35 Albumin 3.5 g/dL (3.4-4.8) 05/25/20 16:35 Lipase 4 U/L (8-78) L 05/25/20 16:35 Urine Ketones Negative mg/dL (Negative) 05/25/20 19:01 Urine Blood 1+ (Negative) A 05/25/20 19:01 Urine Nitrite Negative (Negative) 05/25/20 19:01 Ur Leukocyte Esterase Negative Herrera/uL (Negative) 05/25/20 19:01 Urine RBC 21-50 HPF (0-3) A 05/25/20 19:01 Urine WBC 0-3 HPF (0-3) 05/25/20 19:01 Ur Squamous Epith Cells None Seen HPF (0-3) 05/25/20 19:01 Urine Bacteria None Seen HPF (None Seen) 05/25/20 19:01 Additional comment: VITAL SIGNS SunMay 25, 2020 15:23 ALBERT Sims, Tram BP: 101/55 MAP: 70 Pulse: 62 Temp: 97.9 (Oral) Pain: 0 O2 sat: 96 on (Room Air) Time: 05/25/2020 15:23. labs, ED documents, imaging reports reviewed - EKG Interpretation EKG: sinus bradycardia 58 bpm, no acute ST changes Hospitalist H&P A/P - Plan Plan: Patient is an 89 year old male with PMH HTN, T2DM who presents to hospital for presyncopal episode at home, found to have possible pneumonia # abnomal lung imaging suspicious for pneumonia - covid vs aspiration vs community aquired, patinet with chronic swallowing issues - admit to floor - start azitromycin, ceftriaxone, metronidazole - follow up covid swab - speech consult # debility - pt/ot consult # HTN - resume home meds, prn medications ordered # dm - SSI, resume home meds as indicated # hyperkalemia - perhaps due to hypovolemia, start 1 bag gentle IVF, trend BMP DVT/GI ppx
[2020-05-25] MEDS ORDERED: Electrolyte Replacement Protocol 1 EACH FS SCH (21:15)
[2020-05-25] MEDS ORDERED: Dextrose 50% Abboject 50 ML SYRINGE SLOW IVP PRN (21:54)
[2020-05-25] MEDS ORDERED: Dextrose 5% in Water 1,000 ML IV PRN (21:54)
[2020-05-25] MEDS ORDERED: Azithromycin 500 MG in Syringe 0 ML IVPB ONE (22:20)
[2020-05-25] MEDS ORDERED: Sodium Chloride 0.9% 500 ML IV SCH (22:30)
[2020-05-25] MEDS: HYDROcodone/Acetaminophen 10/325 mg Tablet PO PRN (22:49)
[2020-05-25] MEDS: metroNIDAZOLE 500 MG in Premix Bag 1 BAG IVPB SCH (22:49)
[2020-05-25] MEDS: Azithromycin 500 MG in Sodium Chloride 0.9% 250 ML 250 ML IVPB SCH (23:24)
[2020-05-25 23:28] LABS: SARS-CoV-2 NAA Rapid Test DETECTED (NotDetected)
[2020-05-25] MEDS ORDERED: Piperacillin/Tazobactam 3.375 GM in Sodium Chloride 0.9% 100 ML IVPB SCH (23:59)
[2020-05-26] MEDS: Azithromycin 500 MG in Sodium Chloride 0.9% 250 ML 250 ML IVPB SCH (00:39)
[2020-05-26] MEDS: metroNIDAZOLE 500 MG in Premix Bag 1 BAG IVPB SCH (06:23)
[2020-05-26] MEDS: Morphine 2 MG/ML VIAL SLOW IVP PRN ×3 (06:24→20:58)
[2020-05-26 06:53] LABS: #Eosinphils 0.1 thou/uL (0.0-0.7); #Lymphocytes 1.5 thou/uL (1.20-3.40); #Monocytes 0.5 thou/uL (0.11-0.59); #Neutrophils 2.7 thou/uL (1.40-6.50); %Basophils 0.5 % (0.0-1.0); %Eosinophils 1.3 % (0.0-10.0); %Lymphocytes 31.5 % (21.0-51.0); %Neutrophils 56.7 % (42.0-75.0); Hemoglobin 8.3 g/dL (14.0-18.0); Mean Corpuscular HGB CONC 32.1 g/dL (32.0-36.0); Mean Corpuscular Hemoglobin 33.1 pg (27.0-31.0); Mean Platelet Volume 8.4 fL (7.4-10.4); Platelet Count 337 thou/uL (130-400); RBC Distribution Width 15.2 % (11.5-14.5); Red Blood Cell (RBC) Count 2.51 mill/uL (4.70-6.10); White Blood Cell (WBC) Count 4.7 thou/uL (4.8-10.8)
[2020-05-26 07:08] LABS: Anion Gap 15 mmol/L (10-20); BUN (Urea Nitrogen) 10 mg/dL (8.4-25.7); Calc. Creatinine Clearance 61 mL/min (70-130); Calcium 8.2 mg/dL (7.8-10.44); Carbon Dioxide 23 mmol/L (23-31); Chloride 104 mmol/L (98-107); Glucose 100 mg/dL (83-110); Magnesium 1.5 mg/dL (1.6-2.6); Potassium 4.9 mmol/L (3.5-5.1); Sodium 137 mmol/L (136-145)
[2020-05-26] MEDS ORDERED: Albuterol 200 PUFF (6.7GM INHALER) INH SCH (07:45)
[2020-05-26] MEDS ORDERED: Magnesium 2 GM/50 ML 2 GM in Premix Bag 1 BAG IVPB SCH ×2 (08:15→12:00)
[2020-05-26] MEDS: DULoxetine 60 MG CAP PO SCH (08:28)
[2020-05-26] MEDS: Carvedilol 6.25 MG TAB PO SCH ×2 (08:29→20:51)
[2020-05-26] MEDS: Famotidine 20 MG TAB PO SCH ×2 (08:30→20:51)
[2020-05-26] MEDS: Atorvastatin Calcium 40 MG TAB PO SCH (08:31)
[2020-05-26] MEDS: Gemfibrozil 600 MG TAB PO SCH (08:31)
[2020-05-26] MEDS: Losartan 25 MG TAB PO SCH (08:31)
[2020-05-26] MEDS: Tamsulosin HCl 0.4 MG CAP PO SCH (08:31)
[2020-05-26] MEDS: Polyethylene Glycol 3350 17 GM Packet PO SCH (08:32)
[2020-05-26] MEDS ORDERED: Aspirin Chewable 81 MG TAB PO SCH (09:00)
[2020-05-26] MEDS ORDERED: Heparin 5,000 UNITS/ML VIAL SC SCH (09:00)
[2020-05-26] MEDS: Apixaban 2.5 MG TAB PO SCH ×2 (11:57→20:52)
[2020-05-26] MEDS ORDERED: REMDESIVIR (EUA) 200 MG in Sodium Chloride 0.9% 250 ML 210 ML IV SCH (12:00)
[2020-05-26] MEDS: Albuterol 200 PUFF (6.7GM INHALER) INH SCH ×2 (13:00→18:07)
--- NOTE | 2020-05-26 15:28 | PDOC.HOSPP ---
- Subjective Encounter Date: 05/26/20 Encounter Time: 09:00 Subjective: no sob, feels better this morning is thirsty and feels his mouth dry - Objective Vital Signs & Weight: Vital Signs (12 hours) Temp Pulse Resp BP BP Pulse Ox Pulse Ox 05/26/20 14:00 97.8 F 82 20 125/74 05/26/20 12:49 98 05/26/20 12:10 97.8 F 82 20 125/74 92 L 05/26/20 10:41 92 L 05/26/20 08:29 153/84 H 05/26/20 08:00 98.9 F 82 20 153/84 H 95 05/26/20 06:34 16 152/74 H Pulse Ox 05/26/20 14:00 05/26/20 12:49 93 L 05/26/20 12:10 05/26/20 10:41 05/26/20 08:29 05/26/20 08:00 05/26/20 06:34 Weight Weight 143 lb 3 oz I&O: 05/25/20 05/26/20 05/27/20 06:59 06:59 06:59 Intake Total 650 Output Total 400 Balance 250 Result Diagrams: 05/26/20 06:17 05/26/20 06:17 Additional Labs: Accuchecks 05/26/20 05/26/20 11:37 06:39 POC Glucose 130 H 98 Hospitalist ROS - Medication Medications: Active Medications Generic Name Dose Route Start Last Admin Trade Name Freq PRN Reason Stop Dose Admin Hydrocodone Bitart/Acetaminophen 2 tab 05/25/20 21:53 05/25/20 22:49 Hydrocodone/Acetaminophen 10/325 Mg Tablet PO 2 tab Q6HR PRN Administration Severe Pain (7-10) Albuterol Sulfate 2 puff 05/26/20 13:00 05/26/20 13:00 Albuterol 200 Puff (6.7gm Inhaler) INH 2 puff [id number] YOSI Administration Apixaban 2.5 mg 05/26/20 09:00 05/26/20 11:57 Apixaban 2.5 Mg Tab PO Not Given BID YOSI Atorvastatin Calcium 40 mg 05/26/20 09:00 05/26/20 08:31 Atorvastatin Calcium 40 Mg Tab PO 40 mg DAILY YOSI Administration Carvedilol 6.25 mg 05/26/20 09:00 05/26/20 08:29 Carvedilol 6.25 Mg Tab PO 6.25 mg BID YOSI Administration Duloxetine HCl 60 mg 05/26/20 09:00 05/26/20 08:28 Duloxetine 60 Mg Cap PO 60 mg DAILY YOSI Administration Famotidine 20 mg 05/26/20 09:00 05/26/20 08:30 Famotidine 20 Mg Tab PO 20 mg BID YOSI Administration Fentanyl 25 mcg 05/26/20 09:00 05/26/20 12:54 Fentanyl 25 Mcg/Hour Patch TD 25 mcg Q3D YOSI Administration Gemfibrozil 600 mg 05/26/20 09:00 05/26/20 08:31 Gemfibrozil 600 Mg Tab PO 600 mg DAILY YOSI Administration Isosorbide Mononitrate 30 mg 05/26/20 09:00 05/26/20 08:31 Isosorbide Mononitrate Er 30 Mg Tab PO 30 mg DAILY YOSI Administration Losartan Potassium 100 mg 05/26/20 09:00 05/26/20 08:31 Losartan 25 Mg Tab PO 100 mg DAILY YOSI Administration Morphine Sulfate 2 mg 05/25/20 21:07 05/26/20 13:34 Morphine 2 Mg/Ml Vial SLOW IVP 2 mg Q4H PRN Administration severe pain 4-10 Polyethylene Glycol 17 gm 05/26/20 09:00 05/26/20 08:32 Polyethylene Glycol 3350 17 Gm Packet PO 17 gm DAILY YOSI Administration Ranolazine 1,000 mg 05/26/20 09:00 05/26/20 08:28 Ranolazine 500 Mg Tab PO 1,000 mg BID YOSI Administration Tamsulosin HCl 0.4 mg 05/26/20 09:00 05/26/20 08:31 Tamsulosin Hcl 0.4 Mg Cap PO 0.4 mg DAILY YOSI Administration - Exam General Appearance: awake alert Eye: PERRL, anicteric sclera ENT: no oropharyngeal lesions, dry oral mucosa Neck: supple, no JVD Heart: RRR, no murmur Respiratory: no wheezes, no rales, rhonchi Gastrointestinal: soft, non-tender, non-distended, normal bowel sounds Extremities: no edema Extremities - other findings: left hip georgi are intact, echymosis of left LE Neurological: cranial nerve grossly intact, no focal deficits Hosp A/P (1) Pneumonia due to COVID-19 virus Code(s): U07.1 - COVID-19; J12.82 - PNEUMONIA DUE TO CORONAVIRUS DISEASE 2019 Status: Acute (2) Acute respiratory failure with hypoxia Code(s): J96.01 - ACUTE RESPIRATORY FAILURE WITH HYPOXIA Status: Acute (3) DM type 2 (diabetes mellitus, type 2) Status: Chronic Qualifiers: Diabetes mellitus intermediate insulin use: without intermediate use (4) Afib Code(s): I48.91 - UNSPECIFIED ATRIAL FIBRILLATION Status: Chronic Qualifiers: Atrial fibrillation type: paroxysmal Qualified Code(s): I48.0 - Paroxysmal atrial fibrillation (5) H/O spinal stenosis Code(s): Z87.39 - PERSONAL HISTORY OF DISEASES OF THE MS SYS AND CONN TISS Status: Chronic (6) s/p left hip surgery Status: Acute (7) Hyperlipemia Code(s): E78.5 - HYPERLIPIDEMIA, UNSPECIFIED Status: Chronic Qualifiers: Hyperlipidemia type: unspecified Qualified Code(s): E78.5 - Hyperlipidemia, unspecified (8) Hypertension Code(s): I10 - ESSENTIAL (PRIMARY) HYPERTENSION Status: Chronic Qualifiers: Hypertension type: essential hypertension Qualified Code(s): I10 - Essential (primary) hypertension - Plan is on nasal canula O2, dexamethasone, alb and dulera inh continue home dose of eliquis, coreg, asp, lipitor, cymbalta, imdur, cozaar, ranexa and flomax staff to confirm fentanyl tts dose dc all antibiotics due to covid being +ve d/w [place] PA to reg post op hip nail fixation for left intertrochanteric fracture on 05/14/2020, has echymosis of left LE ?hold eliquis PT to mobilize per ortho advice will need swing bed in [place] for dc plan d/w son [phone] over phone and gave full updates, agrees with swing bed dc plan d/w , is cleared for remdesivir, pharmacy is aware.
[2020-05-26] MEDS: HYDROcodone/Acetaminophen 10/325 mg Tablet PO PRN (16:11)
[2020-05-26] MEDS ORDERED: cefTRIAXone\\ROCEPHIN 2 GM in Sodium Chloride 0.9% 100 ML IVPB SCH (18:00)
[2020-05-26] MEDS ORDERED: Azithromycin 500 MG in Sodium Chloride 0.9% 250 ML 250 ML IVPB SCH (21:00)
[2020-05-26] MEDS ORDERED: Enoxaparin Sodium 40 MG/0.4 ML SYRINGE SC SCH (21:00)
[2020-05-26] MEDS ORDERED: Azithromycin 500 MG in Syringe 0 ML IVPB SCH (21:00)
--- NOTE | 2020-05-26 21:52 | CON ---
DATE OF CONSULTATION: 05/26/2020 REASON FOR CONSULTATION: COVID-19. HISTORY OF PRESENT ILLNESS: An 89-year-old who has a history of type 2 diabetes, hypertension and coronary artery disease with two coronary stents placed in 2018, who had been in the hospital at the beginning of May after a fall and hip fracture on the left side that was fixed and he was discharged home and developed hypotension, which was identified by patient's family. Did not have any particular symptoms of headaches. No respiratory symptoms. No fever or chills. No vomiting. No abdominal pain or diarrhea. No bleeding. On arrival, his BP was 101/55, pulse 62, temperature 97.9, O2 saturations were 96 on room air. His exam was fairly unremarkable. The wound in the left lower extremity was clean and dry. There is a bruising area around it as expected, but nothing out of the ordinary. Initial findings also included white cell count of 5.7, hemoglobin 8.1. Previous hemoglobin was actually lower than that on the day of discharge after the hip fracture fixation. His differential was essentially normal. Platelets were 379 and D-dimer was 3.80. Chemistry with a sodium 134, creatinine 0.89. AST was 36. Remainder aspects of liver profile normal. Albumin 3.5. BNP 263. Urinalysis with 0 to 3 wbc's. He had a SARS-CoV PCR positive on admission. The previous SARS-CoV had been done on May 04. It was not detected. It does not look like he had a repeat test done when he was admitted after the fall for the left-sided hip fracture at least not in the records with [facility]. Currently, Mr. Gambino is doing relatively well. He is awake and alert. He removed his O2 nasal cannula supplementation probably by accident. Denies any headaches. No visual symptoms, sore throat, odynophagia, or dysphagia. No respiratory symptoms. No chest pain. No abdominal pain. Minimal pain in the left hip site. He knows his name and knows where he is, the date as well. PAST MEDICAL HISTORY: Type 2 diabetes, hypertension, coronary artery disease with stents, recent left hip fracture with fixation. SOCIAL HISTORY: He lives by himself. Has family members around. Never smoker. Retired. ALLERGIES: PENICILLIN WITH RASH. CURRENT MEDICATIONS: Inhalers, Lipitor, dextrose, Cymbalta, Duragesic, Lopid. It looks like they started him on remdesivir. PHYSICAL EXAMINATION: VITAL SIGNS: He was saturating 92. When I saw him, he was 87 to 91 and he was not wearing his nasal cannula O2. When the O2 was replaced in his nose, then his sats went up to 98%, measured in the finger. GENERAL: He has bruising in the left hip, which is old bruising. He has peripheral IV access and is able to void in the urinal without difficulty. HEENT: No lymphadenopathy. Ocular movements conjugate. Oral cavity with still a few [place] teeth. NECK: Supple. No jugular vein distention. LUNGS: Symmetric air entry. A few crackles on the left upper lung. HEART: S1, S2. Regular rate without murmurs. ABDOMEN: Soft. Not distended or tender. No ascites. No bladder distention. EXTREMITIES: No other joint inflammatory process noted. No edema. Pulses 1+ in dorsalis pedis. Moves extremities without weakness. NEUROLOGIC: Awake, oriented, follows commands, knows his name. LABORATORY DATA: Followup labs: White cell count is 4.7, hemoglobin is up to 8.3. Chemistries not remarkable. IMAGING: Chest CT with angiogram showed no evidence of pulmonary embolism and nonspecific bilateral hilar lymphadenopathy noted, measuring 1.4 cm short axis and some mildly enlarged subcarinal lymph node noted, measuring 1.4 cm. There is no evidence of pulmonary embolism, again, and there is an area of ground-glass opacity, airspace disease in the posterior inferior aspect of the right upper lobe, some mild bronchial wall thickening and bronchiectatic change. ASSESSMENT AND PLAN: Coronary artery disease, type 2 diabetes, moderate SARS-CoV-2 infection with a quite focal area of ground-glass opacity. He does have desaturation, though in view of his risk factors, age, I would recommend starting Decadron in addition to remdesivir, although remdesivir alone may take care of business here. The age of this infection is not clear. We will go ahead and submit antibodies to see if it is beyond what the first week or not. This is based on the fact that he was not tested the first time around when he was admitted at the end of April after his fall. Job ID: [id number]
[2020-05-27] MEDS: Morphine 2 MG/ML VIAL SLOW IVP PRN (05:31)
[2020-05-27] MEDS: Labetalol HCl 100 MG/20 ML VIAL SLOW IVP PRN (05:32)
[2020-05-27] MEDS: Albuterol 200 PUFF (6.7GM INHALER) INH SCH ×3 (05:35→18:02)
[2020-05-27 06:32] LABS: #Lymphocytes 1.6 thou/uL (1.20-3.40); #Monocytes 0.6 thou/uL (0.11-0.59); #Neutrophils 2.8 thou/uL (1.40-6.50); %Basophils 0.2 % (0.0-1.0); %Eosinophils 0.5 % (0.0-10.0); %Lymphocytes 32.3 % (21.0-51.0); %Neutrophils 55.9 % (42.0-75.0); Mean Corpuscular HGB CONC 32.2 g/dL (32.0-36.0); Mean Corpuscular Hemoglobin 32.7 pg (27.0-31.0); Mean Platelet Volume 8.2 fL (7.4-10.4); Platelet Count 368 thou/uL (130-400); RBC Distribution Width 15.4 % (11.5-14.5); Red Blood Cell (RBC) Count 2.44 mill/uL (4.70-6.10)
[2020-05-27 06:54] LABS: Anion Gap 13 mmol/L (10-20); BUN (Urea Nitrogen) 10 mg/dL (8.4-25.7); Calc. Creatinine Clearance 61 mL/min (70-130); Calcium 8.3 mg/dL (7.8-10.44); Carbon Dioxide 27 mmol/L (23-31); Chloride 102 mmol/L (98-107); Glucose 107 mg/dL (83-110); Magnesium 1.7 mg/dL (1.6-2.6); Potassium 4.8 mmol/L (3.5-5.1); Sodium 137 mmol/L (136-145)
[2020-05-27] MEDS ORDERED: Magnesium 2 GM/50 ML 2 GM in Premix Bag 1 BAG IVPB SCH (07:30)
[2020-05-27] MEDS: DULoxetine 60 MG CAP PO SCH (09:05)
[2020-05-27] MEDS: Dexamethasone 4 mg/ml Vial SLOW IVP SCH (09:05)
[2020-05-27] MEDS: Famotidine 20 MG TAB PO SCH (09:05)
[2020-05-27] MEDS: Losartan 25 MG TAB PO SCH (09:06)
[2020-05-27] MEDS: Gemfibrozil 600 MG TAB PO SCH (09:06)
[2020-05-27] MEDS: Atorvastatin Calcium 40 MG TAB PO SCH (09:06)
[2020-05-27] MEDS: HYDROcodone/Acetaminophen 10/325 mg Tablet PO PRN ×2 (09:07→20:27)
[2020-05-27] MEDS: Apixaban 2.5 MG TAB PO SCH ×2 (09:12→20:19)
[2020-05-27] MEDS: Tamsulosin HCl 0.4 MG CAP PO SCH (09:12)
[2020-05-27] MEDS: Carvedilol 6.25 MG TAB PO SCH ×2 (09:12→20:19)
[2020-05-27] MEDS: Polyethylene Glycol 3350 17 GM Packet PO SCH (09:12)
[2020-05-27] MEDS: REMDESIVIR (EUA) 100 MG in Sodium Chloride 0.9% 250 ML 230 ML IV SCH (13:05)
--- NOTE | 2020-05-27 15:21 | PDOC.HOSPP ---
- Subjective Encounter Date: 05/27/20 Encounter Time: 09:40 Subjective: no new complaints except that he wants his regualar diet not chopped food no sob, is comfortable on nasal canula - Objective Vital Signs & Weight: Vital Signs (12 hours) Temp Pulse Resp BP BP Pulse Ox 05/27/20 11:30 98.3 F 71 16 114/61 97 05/27/20 04:00 98.5 F 74 18 178/78 H 96 Weight Weight 143 lb 3 oz I&O: 05/26/20 05/27/20 05/28/20 06:59 06:59 06:59 Intake Total 650 Output Total 1000 400 Balance -350 -400 Result Diagrams: 05/27/20 06:03 05/27/20 06:03 Additional Labs: Accuchecks 05/27/20 05/27/20 05/27/20 11:32 04:59 01:41 POC Glucose 164 H 97 100 05/26/20 05/26/20 20:37 15:44 POC Glucose 102 H 143 H Hospitalist ROS - Medication Medications: Active Medications Generic Name Dose Route Start Last Admin Trade Name Freq PRN Reason Stop Dose Admin Hydrocodone Bitart/Acetaminophen 2 tab 05/25/20 21:53 05/27/20 09:07 Hydrocodone/Acetaminophen 10/325 Mg Tablet PO 1 tab Q6HR PRN Administration Severe Pain (7-10) Albuterol Sulfate 2 puff 05/26/20 13:00 05/27/20 13:05 Albuterol 200 Puff (6.7gm Inhaler) INH 2 puff [id number] YOSI Administration Apixaban 2.5 mg 05/26/20 09:00 05/27/20 09:12 Apixaban 2.5 Mg Tab PO Not Given BID YOSI Atorvastatin Calcium 40 mg 05/26/20 09:00 05/27/20 09:06 Atorvastatin Calcium 40 Mg Tab PO 40 mg DAILY YOSI Administration Carvedilol 6.25 mg 05/26/20 09:00 05/27/20 09:12 Carvedilol 6.25 Mg Tab PO 6.25 mg BID YOSI Administration Dexamethasone 6 mg 05/27/20 09:00 05/27/20 09:05 Dexamethasone 4 Mg/Ml Vial SLOW IVP 6 mg DAILY YOSI Administration Duloxetine HCl 60 mg 05/26/20 09:00 05/27/20 09:05 Duloxetine 60 Mg Cap PO 60 mg DAILY YOSI Administration Famotidine 20 mg 05/26/20 09:00 05/27/20 09:05 Famotidine 20 Mg Tab PO 20 mg BID YOSI Administration Fentanyl 25 mcg 05/26/20 09:00 05/26/20 12:54 Fentanyl 25 Mcg/Hour Patch TD 25 mcg Q3D YOSI Administration Gemfibrozil 600 mg 05/26/20 09:00 05/27/20 09:06 Gemfibrozil 600 Mg Tab PO 600 mg DAILY YOSI Administration Remdesivir 100 mg/ Sodium 250 mls @ 250 mls/hr 05/27/20 13:00 05/27/20 13:05 Chloride IV 05/30/20 13:59 250 mls 1300 YOSI Administration Isosorbide Mononitrate 30 mg 05/26/20 09:00 05/27/20 09:06 Isosorbide Mononitrate Er 30 Mg Tab PO 30 mg DAILY YOSI Administration Labetalol HCl 20 mg 05/25/20 21:07 05/27/20 05:32 Labetalol Hcl 100 Mg/20 Ml Vial SLOW IVP 4 ml Q4H PRN Administration SBP > 160 use first Losartan Potassium 100 mg 05/26/20 09:00 05/27/20 09:06 Losartan 25 Mg Tab PO 100 mg DAILY YOSI Administration Morphine Sulfate 2 mg 05/25/20 21:07 05/27/20 05:31 Morphine 2 Mg/Ml Vial SLOW IVP 2 mg Q4H PRN Administration severe pain 4-10 Polyethylene Glycol 17 gm 05/26/20 09:00 05/27/20 09:12 Polyethylene Glycol 3350 17 Gm Packet PO 17 gm DAILY YOSI Administration Ranolazine 1,000 mg 05/26/20 09:00 05/27/20 09:07 Ranolazine 500 Mg Tab PO 1,000 mg BID YOSI Administration Tamsulosin HCl 0.4 mg 05/26/20 09:00 05/27/20 09:12 Tamsulosin Hcl 0.4 Mg Cap PO 0.4 mg DAILY YOSI Administration - Exam General Appearance: awake alert Eye: PERRL, anicteric sclera ENT: no oropharyngeal lesions, moist mucosa Neck: supple, no JVD Heart: RRR, no murmur Respiratory: no wheezes, no rales, rhonchi Gastrointestinal: soft, non-tender, non-distended, normal bowel sounds Extremities: no cyanosis, no edema Neurological: cranial nerve grossly intact, no focal deficits Psychiatric: A&O x 3 Hosp A/P (1) Pneumonia due to COVID-19 virus Code(s): U07.1 - COVID-19; J12.82 - PNEUMONIA DUE TO CORONAVIRUS DISEASE 2018 Status: Acute (2) Acute respiratory failure with hypoxia Code(s): J96.01 - ACUTE RESPIRATORY FAILURE WITH HYPOXIA Status: Acute (3) DM type 2 (diabetes mellitus, type 2) Status: Chronic Qualifiers: Diabetes mellitus long term acute care registered nurse insulin use: without long term acute care registered nurse use (4) Afib Code(s): I48.91 - UNSPECIFIED ATRIAL FIBRILLATION Status: Chronic Qualifiers: Atrial fibrillation type: paroxysmal Qualified Code(s): I48.0 - Paroxysmal atrial fibrillation (5) H/O spinal stenosis Code(s): Z87.39 - PERSONAL HISTORY OF DISEASES OF THE MS SYS AND CONN TISS Status: Chronic (6) s/p left hip surgery Status: Acute (7) Hyperlipemia Code(s): E78.5 - HYPERLIPIDEMIA, UNSPECIFIED Status: Chronic Qualifiers: Hyperlipidemia type: unspecified Qualified Code(s): E78.5 - Hyperlipidemia, unspecified (8) Hypertension Code(s): I10 - ESSENTIAL (PRIMARY) HYPERTENSION Status: Chronic Qualifiers: Hypertension type: essential hypertension Qualified Code(s): I10 - Essential (primary) hypertension - Plan is on nasal canula O2, remdesivir, dexamethasone, alb and dulera inh continue home dose of eliquis, coreg, asp, lipitor, cymbalta, imdur, cozaar, ranexa and flomax had georgi from recent hip surgery removed 05/26 PT to mobilize per ortho advice will need swing bed in [place] for dc plan d/w son [phone] over phone and gave full updates, agrees with swing bed dc plan 05/26, 05/27 encourage po intake
[2020-05-27] MEDS: HumaLOG 300 UNITS/3 ML VIAL SC PRN (16:50)
[2020-05-27 19:59] LABS: SARS-CoV-2 IgG Ab Reactive (NonReactive); SARS-CoV-2 IgG Index 1.86 S/CO (< 1.40)
[2020-05-28] MEDS: Labetalol HCl 100 MG/20 ML VIAL SLOW IVP PRN (01:00)
[2020-05-28] MEDS: HumaLOG 300 UNITS/3 ML VIAL SC PRN ×3 (05:41→20:32)
[2020-05-28] MEDS: Albuterol 200 PUFF (6.7GM INHALER) INH SCH ×3 (05:43→18:17)
[2020-05-28] MEDS: HYDROcodone/Acetaminophen 10/325 mg Tablet PO PRN ×2 (05:45→18:22)
[2020-05-28 06:25] LABS: Hemoglobin 7.8 g/dL (14.0-18.0); Mean Corpuscular HGB CONC 31.7 g/dL (32.0-36.0); Mean Corpuscular Hemoglobin 32.3 pg (27.0-31.0); Mean Platelet Volume 8.3 fL (7.4-10.4); Platelet Count 387 thou/uL (130-400); RBC Distribution Width 15.6 % (11.5-14.5); Red Blood Cell (RBC) Count 2.42 mill/uL (4.70-6.10); White Blood Cell (WBC) Count 2.5 thou/uL (4.8-10.8)
[2020-05-28 06:34] LABS: ALT (SGPT) 8 U/L (8-55); AST (SGOT) 20 U/L (5-34); Albumin 3.1 g/dL (3.4-4.8); Alkaline Phosphatase 90 U/L (40-110); Bilirubin, Direct 0.3 mg/dL (0.1-0.3); Bilirubin, Total 0.6 mg/dL (0.2-1.2); Protein, Total 5.5 g/dL (5.8-8.1)
[2020-05-28 06:37] LABS: Anion Gap 19 mmol/L (10-20); BUN (Urea Nitrogen) 12 mg/dL (8.4-25.7); Calc. Creatinine Clearance 62 mL/min (70-130); Calcium 7.9 mg/dL (7.8-10.44); Carbon Dioxide 21 mmol/L (23-31); Chloride 100 mmol/L (98-107); Glucose 160 mg/dL (83-110); Potassium 4.5 mmol/L (3.5-5.1); Sodium 135 mmol/L (136-145)
[2020-05-28 08:20] LABS: Anisocytosis SLIGHT = 6-15 cells (100X) (0-5/hpf); Hypochromia MODERATE=16-30 cells (100X) (0-5/hpf); Lymphocytes 41 % (21-51); MDiff Complete? YES; Monocytes 8 % (0-10); Neutrophil 48 % (42-75); Platelet Morphology Comment Appears Adequate; Polychromasia SLIGHT = 2-3 cells (100X) (0-2/hpf); Reactive Lymphocytes 3 % (0-10)
[2020-05-28] MEDS: Atorvastatin Calcium 40 MG TAB PO SCH (08:59)
[2020-05-28] MEDS: Polyethylene Glycol 3350 17 GM Packet PO SCH (08:59)
[2020-05-28] MEDS: Dexamethasone 4 mg/ml Vial SLOW IVP SCH (08:59)
[2020-05-28] MEDS: DULoxetine 60 MG CAP PO SCH (09:00)
[2020-05-28] MEDS: Gemfibrozil 600 MG TAB PO SCH (09:00)
[2020-05-28] MEDS: Losartan 25 MG TAB PO SCH (09:00)
[2020-05-28] MEDS: Carvedilol 6.25 MG TAB PO SCH ×2 (09:00→20:22)
[2020-05-28] MEDS: Apixaban 2.5 MG TAB PO SCH ×2 (09:00→20:22)
[2020-05-28] MEDS: Tamsulosin HCl 0.4 MG CAP PO SCH (09:01)
[2020-05-28] MEDS ORDERED: Magnesium 2 GM/50 ML 2 GM in Premix Bag 1 BAG IVPB SCH (09:15)
[2020-05-28] MEDS: REMDESIVIR (EUA) 100 MG in Sodium Chloride 0.9% 250 ML 230 ML IV SCH (12:39)
--- NOTE | 2020-05-28 14:43 | PRG ---
DATE OF SERVICE: 05/28/2020 SUBJECTIVE: Mr. Gambino is not happy with his current diet. He is hungry. No dyspnea. He is still on nasal cannula O2 supplementation. No diarrhea. No abdominal pain. OBJECTIVE: VITAL SIGNS: Normal temperature. He is on nasal cannula O2, saturating 97, flow rate is 2 L/minute. Looks like they have removed it to see how he does without O2 supplementation. LUNGS: With few crackles in the left side. HEART: S1 and S2, regular rate. ABDOMEN: Soft. NEUROLOGIC: No change in neuro exam. LABORATORY DATA: His SARS-CoV-2 IgG antibody index is 1.86. His creatinine is 0.74. His CRP first measurement today was 5.74. ASSESSMENT AND DISCUSSION: Type 2 diabetes, coronary artery disease, moderate SARS-CoV-2 infection, focal area of ground-glass opacity. Still on O2 nasal cannula, but they are trying him off O2. His IgG level tells me that he is around the 8th day of illness approximately and so he is kind of yet borderline for discharge planning. I would consider keeping him another day or two to see how he does, because those patients sometimes may have to be readmitted due to premature discharge planning. He is on remdesivir and Decadron to be continued. Job ID: [id number]
--- NOTE | 2020-05-28 15:30 | PDOC.HOSPP ---
- Subjective Encounter Date: 05/28/20 Encounter Time: 09:40 Subjective: is doing well, on nasal canula off and on no sob, says he will try to walk when PT comes in today - Objective Vital Signs & Weight: Vital Signs (12 hours) Temp Pulse Resp BP BP Pulse Ox 05/28/20 07:57 98.4 F 72 16 184/88 H 97 05/28/20 04:52 98.2 F 69 18 168/84 H 96 Weight Weight 143 lb 3 oz I&O: 05/27/20 05/28/20 05/29/20 06:59 06:59 06:59 Intake Total 650 360 Output Total 1000 1200 600 Balance -350 -1200 -240 Result Diagrams: 05/28/20 05:40 05/28/20 05:40 Additional Labs: Accuchecks 05/28/20 05/28/20 05/27/20 12:07 05:14 20:10 POC Glucose 164 H 187 H 146 H 05/27/20 15:59 POC Glucose 197 H Hospitalist ROS - Medication Medications: Active Medications Generic Name Dose Route Start Last Admin Trade Name Freq PRN Reason Stop Dose Admin Hydrocodone Bitart/Acetaminophen 2 tab 05/25/20 21:53 05/28/20 05:45 Hydrocodone/Acetaminophen 10/325 Mg Tablet PO 2 tab Q6HR PRN Administration Severe Pain (7-10) Albuterol Sulfate 2 puff 05/26/20 13:00 05/28/20 12:39 Albuterol 200 Puff (6.7gm Inhaler) INH 2 puff [id number] YOSI Administration Apixaban 2.5 mg 05/26/20 09:00 05/28/20 09:00 Apixaban 2.5 Mg Tab PO 2.5 mg BID YOSI Administration Atorvastatin Calcium 40 mg 05/26/20 09:00 05/28/20 08:59 Atorvastatin Calcium 40 Mg Tab PO 40 mg DAILY YOSI Administration Carvedilol 6.25 mg 05/26/20 09:00 05/28/20 09:00 Carvedilol 6.25 Mg Tab PO 6.25 mg BID YOSI Administration Dexamethasone 6 mg 05/27/20 09:00 05/28/20 08:59 Dexamethasone 4 Mg/Ml Vial SLOW IVP 6 mg DAILY YOSI Administration Duloxetine HCl 60 mg 05/26/20 09:00 05/28/20 09:00 Duloxetine 60 Mg Cap PO 60 mg DAILY YOSI Administration Fentanyl 25 mcg 05/26/20 09:00 05/26/20 12:54 Fentanyl 25 Mcg/Hour Patch TD 25 mcg Q3D YOSI Administration Gemfibrozil 600 mg 05/26/20 09:00 05/28/20 09:00 Gemfibrozil 600 Mg Tab PO 600 mg DAILY YOSI Administration Remdesivir 100 mg/ Sodium 250 mls @ 250 mls/hr 05/27/20 13:00 05/28/20 12:39 Chloride IV 05/30/20 13:59 250 mls 1300 YOSI Administration Insulin Human Lispro 0 units 05/25/20 21:54 05/28/20 12:39 Humalog 300 Units/3 Ml Vial SC 2 unit .MILD SLIDING SCALE PRN Administration Mild Correctional Scale Isosorbide Mononitrate 30 mg 05/26/20 09:00 05/28/20 09:00 Isosorbide Mononitrate Er 30 Mg Tab PO 30 mg DAILY YOSI Administration Labetalol HCl 20 mg 05/25/20 21:07 05/28/20 01:00 Labetalol Hcl 100 Mg/20 Ml Vial SLOW IVP 4 ml Q4H PRN Administration SBP > 160 use first Losartan Potassium 100 mg 05/26/20 09:00 05/28/20 09:00 Losartan 25 Mg Tab PO 100 mg DAILY YOSI Administration Morphine Sulfate 2 mg 05/25/20 21:07 05/27/20 05:31 Morphine 2 Mg/Ml Vial SLOW IVP 2 mg Q4H PRN Administration severe pain 4-10 Pantoprazole Sodium 40 mg 05/28/20 09:00 05/28/20 09:00 Pantoprazole 40 Mg Tab PO 40 mg DAILY YOSI Administration Polyethylene Glycol 17 gm 05/26/20 09:00 05/28/20 08:59 Polyethylene Glycol 3350 17 Gm Packet PO 17 gm DAILY YOSI Administration Ranolazine 1,000 mg 05/26/20 09:00 05/28/20 09:00 Ranolazine 500 Mg Tab PO 1,000 mg BID YOSI Administration Tamsulosin HCl 0.4 mg 05/26/20 09:00 05/28/20 09:01 Tamsulosin Hcl 0.4 Mg Cap PO 0.4 mg DAILY YOSI Administration - Exam General Appearance: awake alert Eye: PERRL, anicteric sclera ENT: no oropharyngeal lesions, moist mucosa Neck: supple, no JVD Heart: RRR, no murmur Respiratory: no wheezes, no rales, rhonchi Gastrointestinal: soft, non-tender, non-distended, normal bowel sounds Extremities: no cyanosis, no edema Extremities - other findings: echymosis of left LE Neurological: cranial nerve grossly intact, no focal deficits Psychiatric: normal affect, A&O x 3 Hosp A/P (1) Pneumonia due to COVID-19 virus Code(s): U07.1 - COVID-19; J12.82 - PNEUMONIA DUE TO CORONAVIRUS DISEASE 2018 Status: Acute (2) Acute respiratory failure with hypoxia Code(s): J96.01 - ACUTE RESPIRATORY FAILURE WITH HYPOXIA Status: Acute (3) DM type 2 (diabetes mellitus, type 2) Status: Chronic Qualifiers: Diabetes mellitus heel attacher insulin use: without jail use (4) Afib Code(s): I48.91 - UNSPECIFIED ATRIAL FIBRILLATION Status: Chronic Qualifiers: Atrial fibrillation type: paroxysmal Qualified Code(s): I48.0 - Paroxysmal atrial fibrillation (5) H/O spinal stenosis Code(s): Z87.39 - PERSONAL HISTORY OF DISEASES OF THE MS SYS AND CONN TISS Status: Chronic (6) s/p left hip surgery Status: Acute (7) Hyperlipemia Code(s): E78.5 - HYPERLIPIDEMIA, UNSPECIFIED Status: Chronic Qualifiers: Hyperlipidemia type: unspecified Qualified Code(s): E78.5 - Hyperlipidemia, unspecified (8) Hypertension Code(s): I10 - ESSENTIAL (PRIMARY) HYPERTENSION Status: Chronic Qualifiers: Hypertension type: essential hypertension Qualified Code(s): I10 - Essential (primary) hypertension - Plan is on nasal canula O2, remdesivir, dexamethasone, alb and dulera inh sars Cov Ig G ab index is around 1.88, to continue remdesivir per ID advice. continue home dose of eliquis, coreg, asp, lipitor, cymbalta, imdur, cozaar, ranexa and flomax had georgi from recent hip surgery removed 05/26 PT to mobilize per ortho advice will need swing bed in [place] for dc plan d/w son [phone] over phone and gave full updates, agrees with swing bed for dc plan 05/26, 05/27, 05/28. encourage po intake
[2020-05-28] MEDS: Morphine 2 MG/ML VIAL SLOW IVP PRN (20:45)
[2020-05-29] MEDS: Labetalol HCl 100 MG/20 ML VIAL SLOW IVP PRN ×2 (01:16→06:10)
[2020-05-29] MEDS: HYDROcodone/Acetaminophen 10/325 mg Tablet PO PRN ×4 (01:22→20:00)
[2020-05-29] MEDS: Albuterol 200 PUFF (6.7GM INHALER) INH PRN ×2 (06:10→06:13)
[2020-05-29] MEDS: Albuterol 200 PUFF (6.7GM INHALER) INH SCH ×3 (06:17→18:51)
[2020-05-29] MEDS: Atorvastatin Calcium 40 MG TAB PO SCH (07:36)
[2020-05-29] MEDS: Apixaban 2.5 MG TAB PO SCH ×2 (07:36→20:01)
[2020-05-29] MEDS: Carvedilol 6.25 MG TAB PO SCH ×2 (07:36→20:01)
[2020-05-29] MEDS: DULoxetine 60 MG CAP PO SCH (07:37)
[2020-05-29] MEDS: Gemfibrozil 600 MG TAB PO SCH (07:37)
[2020-05-29] MEDS: Dexamethasone 4 mg/ml Vial SLOW IVP SCH (07:37)
[2020-05-29] MEDS: Losartan 25 MG TAB PO SCH (07:38)
[2020-05-29] MEDS: Tamsulosin HCl 0.4 MG CAP PO SCH (07:38)
[2020-05-29] MEDS: Polyethylene Glycol 3350 17 GM Packet PO SCH (07:38)
[2020-05-29 11:12] LABS: ALT (SGPT) 10 U/L (8-55); AST (SGOT) 23 U/L (5-34); Alkaline Phosphatase 93 U/L (40-110); Bilirubin, Direct 0.3 mg/dL (0.1-0.3); Bilirubin, Total 0.6 mg/dL (0.2-1.2); Protein, Total 5.4 g/dL (5.8-8.1)
--- NOTE | 2020-05-29 11:15 | EKG ---
Test Reason : Blood Pressure : / mmHG Vent. Rate : 058 BPM Atrial Rate : 058 BPM P-R Int : 166 ms QRS Dur : 082 ms QT Int : 474 ms P-R-T Axes : 040 -13 042 degrees QTc Int : 465 ms Sinus bradycardia Low voltage QRS Septal infarct , age undetermined Abnormal ECG Confirmed by PORSHA RIVERA ([id number]), advertising editor LORI SPIVEY ([id number]) on 05/29/2020 11:15:18 AM Referred By: Confirmed By:PORSHA RIVERA
[2020-05-29] MEDS: Morphine 2 MG/ML VIAL SLOW IVP PRN (12:11)
[2020-05-29] MEDS: HumaLOG 300 UNITS/3 ML VIAL SC PRN ×2 (12:25→17:27)
[2020-05-29] MEDS: REMDESIVIR (EUA) 100 MG in Sodium Chloride 0.9% 250 ML 230 ML IV SCH (13:35)
--- NOTE | 2020-05-29 17:38 | PDOC.HOSPP ---
- Subjective Encounter Date: 05/29/20 Encounter Time: 17:36 Subjective: Mr. Gambino was seen today in follow-up of COVID pneumonia. He says he feels fine, ad does not have any complaints. He denies feeling short of breath, no cough, ad says he is " asymptomatic". - Objective Vital Signs & Weight: Vital Signs (12 hours) Temp Pulse Resp BP BP Pulse Ox 05/29/20 15:21 98.6 F 64 18 125/65 94 L 05/29/20 11:17 98.3 F 65 16 109/64 97 05/29/20 07:55 97.5 F L 74 16 182/92 H 97 05/29/20 06:32 146/74 H 05/29/20 06:10 73 05/29/20 05:50 98.1 F 73 18 189/84 H 96 Weight Weight 143 lb 3 oz I&O: 05/28/20 05/29/20 05/30/20 06:59 06:59 06:59 Intake Total 360 480 Output Total 1200 900 Balance -1200 -540 480 Result Diagrams: 05/28/20 05:40 05/28/20 05:40 Additional Labs: Accuchecks 05/29/20 05/29/20 05/29/20 15:26 11:20 05:20 POC Glucose 223 H 193 H 136 H 05/28/20 20:24 POC Glucose 195 H Hospitalist ROS - Medication Medications: Active Medications Generic Name Dose Route Start Last Admin Trade Name Freq PRN Reason Stop Dose Admin Hydrocodone Bitart/Acetaminophen 1 tab 05/25/20 21:07 05/28/20 15:45 Hydrocodone/Acetaminophen 5/325 Mg Tablet PO 1 tab Q4H PRN Administration Moderate Pain (4-6) Hydrocodone Bitart/Acetaminophen 2 tab 05/25/20 21:53 05/29/20 13:58 Hydrocodone/Acetaminophen 10/325 Mg Tablet PO 2 tab Q6HR PRN Administration Severe Pain (7-10) Albuterol Sulfate 2 puff 05/26/20 07:30 05/29/20 06:13 Albuterol 200 Puff (6.7gm Inhaler) INH 2 puff Q2H PRN Administration SOB &/or Wheezing Albuterol Sulfate 2 puff 05/26/20 13:00 05/29/20 13:34 Albuterol 200 Puff (6.7gm Inhaler) INH 2 puff [id number] YOSI Administration Apixaban 2.5 mg 05/26/20 09:00 05/29/20 07:36 Apixaban 2.5 Mg Tab PO 2.5 mg BID YOSI Administration Atorvastatin Calcium 40 mg 05/26/20 09:00 05/29/20 07:36 Atorvastatin Calcium 40 Mg Tab PO 40 mg DAILY YOSI Administration Carvedilol 6.25 mg 05/26/20 09:00 05/29/20 07:36 Carvedilol 6.25 Mg Tab PO 6.25 mg BID YOSI Administration Dexamethasone 6 mg 05/27/20 09:00 05/29/20 07:37 Dexamethasone 4 Mg/Ml Vial SLOW IVP 6 mg DAILY YOSI Administration Duloxetine HCl 60 mg 05/26/20 09:00 05/29/20 07:37 Duloxetine 60 Mg Cap PO 60 mg DAILY YOSI Administration Fentanyl 25 mcg 05/26/20 09:00 05/29/20 07:37 Fentanyl 25 Mcg/Hour Patch TD 25 mcg Q3D YOSI Administration Gemfibrozil 600 mg 05/26/20 09:00 05/29/20 07:37 Gemfibrozil 600 Mg Tab PO 600 mg DAILY YOSI Administration Remdesivir 100 mg/ Sodium 250 mls @ 250 mls/hr 05/27/20 13:00 05/29/20 13:35 Chloride IV 05/30/20 13:59 250 mls 1300 YOSI Administration Insulin Human Lispro 0 units 05/25/20 21:54 05/29/20 17:27 Humalog 300 Units/3 Ml Vial SC 3 unit .MILD SLIDING SCALE PRN Administration Mild Correctional Scale Isosorbide Mononitrate 30 mg 05/26/20 09:00 05/29/20 07:38 Isosorbide Mononitrate Er 30 Mg Tab PO 30 mg DAILY YOSI Administration Labetalol HCl 20 mg 05/25/20 21:07 05/29/20 06:10 Labetalol Hcl 100 Mg/20 Ml Vial SLOW IVP 4 ml Q4H PRN Administration SBP > 160 use first Losartan Potassium 100 mg 05/26/20 09:00 05/29/20 07:38 Losartan 25 Mg Tab PO 100 mg DAILY YOSI Administration Morphine Sulfate 2 mg 05/25/20 21:07 05/29/20 12:11 Morphine 2 Mg/Ml Vial SLOW IVP 2 mg Q4H PRN Administration severe pain 4-10 Pantoprazole Sodium 40 mg 05/28/20 09:00 05/29/20 07:38 Pantoprazole 40 Mg Tab PO 40 mg DAILY YOSI Administration Polyethylene Glycol 17 gm 05/26/20 09:00 05/29/20 07:38 Polyethylene Glycol 3350 17 Gm Packet PO 17 gm DAILY YOSI Administration Ranolazine 1,000 mg 05/26/20 09:00 05/29/20 07:38 Ranolazine 500 Mg Tab PO 1,000 mg BID YOSI Administration Tamsulosin HCl 0.4 mg 05/26/20 09:00 05/29/20 07:38 Tamsulosin Hcl 0.4 Mg Cap PO 0.4 mg DAILY YOSI Administration - Exam Eye: PERRL, anicteric sclera Heart: RRR, no murmur, no gallops, no rubs, normal peripheral pulses Respiratory: CTAB (with the exception of just a few rales at the bases) Gastrointestinal: soft, non-tender, non-distended, normal bowel sounds, no palpable masses, no hepatomegaly Extremities: no cyanosis (+ good d.p. pulses, no lesions), no edema Hosp A/P (1) Acute respiratory failure with hypoxia Code(s): J96.01 - ACUTE RESPIRATORY FAILURE WITH HYPOXIA Status: Acute (2) Pneumonia due to COVID-19 virus Code(s): U07.1 - COVID-19; J12.82 - PNEUMONIA DUE TO CORONAVIRUS DISEASE 2019 Status: Acute (3) Afib Code(s): I48.91 - UNSPECIFIED ATRIAL FIBRILLATION Status: Chronic Qualifiers: Atrial fibrillation type: paroxysmal Qualified Code(s): I48.0 - Paroxysmal atrial fibrillation (4) DM type 2 (diabetes mellitus, type 2) Status: Chronic Qualifiers: Diabetes mellitus chcf insulin use: without chcf use (5) H/O spinal stenosis Code(s): Z87.39 - PERSONAL HISTORY OF DISEASES OF THE MS SYS AND CONN TISS Status: Chronic (6) Chronic back pain Code(s): M54.9 - DORSALGIA, UNSPECIFIED; G89.29 - OTHER CHRONIC PAIN Status: Chronic (7) Diabetes Code(s): E11.9 - TYPE 2 DIABETES MELLITUS WITHOUT COMPLICATIONS Status: Chronic (8) Anemia, macrocytic Code(s): D53.9 - NUTRITIONAL ANEMIA, UNSPECIFIED Status: Acute (9) Hypertension Code(s): I10 - ESSENTIAL (PRIMARY) HYPERTENSION Status: Chronic Qualifiers: Hypertension type: essential hypertension Qualified Code(s): I10 - Essential (primary) hypertension (10) Hyperlipemia Code(s): E78.5 - HYPERLIPIDEMIA, UNSPECIFIED Status: Chronic Qualifiers: Hyperlipidemia type: unspecified Qualified Code(s): E78.5 - Hyperlipidemia, unspecified (11) BPH (benign prostatic hyperplasia) Code(s): N40.0 - BENIGN PROSTATIC HYPERPLASIA WITHOUT LOWER URINRY TRACT SYMP Status: Chronic - Plan * Acute respiratory failure due to COVID- continue Remdesivir, ad Decadron * Add incentive Spirometry * Macrocytic anemia- will check B-12 and Folte with the AM blood draw, ad well as Vitamin D levels * HTN- blood pressure is stable- continue Losartan * AFIB- his heart rate is controlled- continue Carvediolol, and continue Eliquis for CVA prevention * Hyperlipidemia- continue Gemfibrozil and Lipitor * DM- ? diet controlled * Probable BPH- continue Flomax
[2020-05-30] MEDS: Morphine 2 MG/ML VIAL SLOW IVP PRN ×4 (00:26→20:55)
[2020-05-30] MEDS: Labetalol HCl 100 MG/20 ML VIAL SLOW IVP PRN (01:37)
[2020-05-30] MEDS: HYDROcodone/Acetaminophen 10/325 mg Tablet PO PRN ×3 (04:03→16:20)
[2020-05-30] MEDS: Albuterol 200 PUFF (6.7GM INHALER) INH SCH ×3 (05:33→18:30)
[2020-05-30] MEDS: HumaLOG 300 UNITS/3 ML VIAL SC PRN ×2 (05:33→16:19)
[2020-05-30 07:23] LABS: ALT (SGPT) 11 U/L (8-55); AST (SGOT) 23 U/L (5-34); Albumin 3.1 g/dL (3.4-4.8); Alkaline Phosphatase 98 U/L (40-110); Bilirubin, Direct 0.3 mg/dL (0.1-0.3); Bilirubin, Total 0.5 mg/dL (0.2-1.2); Protein, Total 5.2 g/dL (5.8-8.1)
[2020-05-30] MEDS: Dexamethasone 4 mg/ml Vial SLOW IVP SCH (07:54)
[2020-05-30] MEDS: DULoxetine 60 MG CAP PO SCH (07:54)
[2020-05-30] MEDS: Gemfibrozil 600 MG TAB PO SCH (07:54)
[2020-05-30] MEDS: Atorvastatin Calcium 40 MG TAB PO SCH (07:54)
[2020-05-30] MEDS: Polyethylene Glycol 3350 17 GM Packet PO SCH (07:55)
[2020-05-30] MEDS: Tamsulosin HCl 0.4 MG CAP PO SCH (07:55)
[2020-05-30] MEDS: Losartan 25 MG TAB PO SCH (07:55)
[2020-05-30] MEDS: Apixaban 2.5 MG TAB PO SCH ×2 (07:58→20:55)
[2020-05-30] MEDS: Carvedilol 6.25 MG TAB PO SCH ×2 (08:01→20:54)
[2020-05-30] MEDS: REMDESIVIR (EUA) 100 MG in Sodium Chloride 0.9% 250 ML 230 ML IV SCH (12:05)
--- NOTE | 2020-05-30 16:23 | PDOC.HOSPP ---
- Subjective Encounter Date: 05/30/20 Encounter Time: 16:22 Subjective: Mr. Gambino was seen today in follow-up of COVID pneumonia. Hesays he feels fine. He does not have any complaints. - Objective Vital Signs & Weight: Vital Signs (12 hours) Temp Pulse Resp BP BP Pulse Ox 05/30/20 15:56 98.4 F 71 16 113/53 L 94 L 05/30/20 11:29 98.5 F 64 16 152/76 H 97 05/30/20 07:54 62 161/71 H 05/30/20 07:26 98.2 F 60 16 150/79 H 96 05/30/20 05:24 98.1 F 66 18 165/74 H 97 Weight Weight 143 lb 3 oz I&O: 05/29/20 05/30/20 05/31/20 06:59 06:59 06:59 Intake Total 360 2830 480 Output Total 900 2000 Balance -540 830 480 Result Diagrams: 05/28/20 05:40 05/28/20 05:40 Additional Labs: Accuchecks 05/30/20 05/29/20 04:37 20:06 POC Glucose 192 H 177 H Hospitalist ROS - Medication Medications: Active Medications Generic Name Dose Route Start Last Admin Trade Name Freq PRN Reason Stop Dose Admin Hydrocodone Bitart/Acetaminophen 1 tab 05/25/20 21:07 05/28/20 15:45 Hydrocodone/Acetaminophen 5/325 Mg Tablet PO 1 tab Q4H PRN Administration Moderate Pain (4-6) Hydrocodone Bitart/Acetaminophen 2 tab 05/25/20 21:53 05/30/20 16:20 Hydrocodone/Acetaminophen 10/325 Mg Tablet PO 2 tab Q6HR PRN Administration Severe Pain (7-10) Albuterol Sulfate 2 puff 05/26/20 07:30 05/29/20 06:13 Albuterol 200 Puff (6.7gm Inhaler) INH 2 puff Q2H PRN Administration SOB &/or Wheezing Albuterol Sulfate 2 puff 05/26/20 13:00 05/30/20 12:04 Albuterol 200 Puff (6.7gm Inhaler) INH 2 puff [id number] YOSI Administration Apixaban 2.5 mg 05/26/20 09:00 05/30/20 07:58 Apixaban 2.5 Mg Tab PO 2.5 mg BID YOSI Administration Atorvastatin Calcium 40 mg 05/26/20 09:00 05/30/20 07:54 Atorvastatin Calcium 40 Mg Tab PO 40 mg DAILY YOSI Administration Carvedilol 6.25 mg 05/26/20 09:00 05/30/20 08:01 Carvedilol 6.25 Mg Tab PO 6.25 mg BID YOSI Administration Dexamethasone 6 mg 05/27/20 09:00 05/30/20 07:54 Dexamethasone 4 Mg/Ml Vial SLOW IVP 6 mg DAILY YOSI Administration Duloxetine HCl 60 mg 05/26/20 09:00 05/30/20 07:54 Duloxetine 60 Mg Cap PO 60 mg DAILY YOSI Administration Fentanyl 25 mcg 05/26/20 09:00 05/29/20 07:37 Fentanyl 25 Mcg/Hour Patch TD 25 mcg Q3D YOSI Administration Gemfibrozil 600 mg 05/26/20 09:00 05/30/20 07:54 Gemfibrozil 600 Mg Tab PO 600 mg DAILY YOSI Administration Insulin Human Lispro 0 units 05/25/20 21:54 05/30/20 16:19 Humalog 300 Units/3 Ml Vial SC 4 unit .MILD SLIDING SCALE PRN Administration Mild Correctional Scale Isosorbide Mononitrate 30 mg 05/26/20 09:00 05/30/20 07:54 Isosorbide Mononitrate Er 30 Mg Tab PO 30 mg DAILY YOSI Administration Labetalol HCl 20 mg 05/25/20 21:07 05/30/20 01:37 Labetalol Hcl 100 Mg/20 Ml Vial SLOW IVP 4 ml Q4H PRN Administration SBP > 160 use first Losartan Potassium 100 mg 05/26/20 09:00 05/30/20 07:55 Losartan 25 Mg Tab PO 100 mg DAILY YOSI Administration Morphine Sulfate 2 mg 05/25/20 21:07 05/30/20 14:55 Morphine 2 Mg/Ml Vial SLOW IVP 2 mg Q4H PRN Administration severe pain 4-10 Pantoprazole Sodium 40 mg 05/28/20 09:00 05/30/20 07:55 Pantoprazole 40 Mg Tab PO 40 mg DAILY YOSI Administration Polyethylene Glycol 17 gm 05/26/20 09:00 05/30/20 07:55 Polyethylene Glycol 3350 17 Gm Packet PO 17 gm DAILY YOSI Administration Ranolazine 1,000 mg 05/26/20 09:00 05/30/20 07:55 Ranolazine 500 Mg Tab PO 1,000 mg BID YOSI Administration Tamsulosin HCl 0.4 mg 05/26/20 09:00 05/30/20 07:55 Tamsulosin Hcl 0.4 Mg Cap PO 0.4 mg DAILY YOSI Administration - Exam General Appearance: NAD, awake alert Eye: PERRL, anicteric sclera Heart: RRR, no murmur, no gallops, no rubs, normal peripheral pulses Respiratory: no wheezes, rales, rhonchi (a few scattered soft rales, and rhonchi) Gastrointestinal: soft, non-tender, non-distended, normal bowel sounds, no palpable masses, no hepatomegaly Extremities: no cyanosis (palpable pulses bilaterally , no lesions), no edema Hosp A/P (1) Acute respiratory failure with hypoxia Code(s): J96.01 - ACUTE RESPIRATORY FAILURE WITH HYPOXIA Status: Acute (2) Pneumonia due to COVID-19 virus Code(s): U07.1 - COVID-19; J12.82 - PNEUMONIA DUE TO CORONAVIRUS DISEASE 2019 Status: Acute (3) Afib Code(s): I48.91 - UNSPECIFIED ATRIAL FIBRILLATION Status: Chronic Qualifiers: Atrial fibrillation type: paroxysmal Qualified Code(s): I48.0 - Paroxysmal atrial fibrillation (4) DM type 2 (diabetes mellitus, type 2) Status: Chronic Qualifiers: Diabetes mellitus longterm insulin use: without cellar worker use (5) H/O spinal stenosis Code(s): Z87.39 - PERSONAL HISTORY OF DISEASES OF THE MS SYS AND CONN TISS Status: Chronic (6) Chronic back pain Code(s): M54.9 - DORSALGIA, UNSPECIFIED; G89.29 - OTHER CHRONIC PAIN Status: Chronic (7) Diabetes Code(s): E11.9 - TYPE 2 DIABETES MELLITUS WITHOUT COMPLICATIONS Status: Chronic (8) Anemia, macrocytic Code(s): D53.9 - NUTRITIONAL ANEMIA, UNSPECIFIED Status: Acute (9) Hypertension Code(s): I10 - ESSENTIAL (PRIMARY) HYPERTENSION Status: Chronic Qualifiers: Hypertension type: essential hypertension Qualified Code(s): I10 - Essential (primary) hypertension (10) Hyperlipemia Code(s): E78.5 - HYPERLIPIDEMIA, UNSPECIFIED Status: Chronic Qualifiers: Hyperlipidemia type: unspecified Qualified Code(s): E78.5 - Hyperlipidemia, unspecified (11) BPH (benign prostatic hyperplasia) Code(s): N40.0 - BENIGN PROSTATIC HYPERPLASIA WITHOUT LOWER URINRY TRACT SYMP Status: Chronic - Plan * Acute respiratory failure due to COVID-Mr. Gambino received his final dose of Remdesivir today. * Continue Decadron and Incentive Spirometry * Macrocytic anemia- B-12 and folic acid levels are normal- thismay need outpatient evaluation * HTN- blood pressure is a bit labile- will continue the current regimen and monitor * AFIB- his heart rate is controlled- continue Carvediolol, and continue Eliquis for CVA prevention * Hyperlipidemia- continue Gemfibrozil and Lipitor * DM- stable * Probable BPH- continue Flomax * Begin discharge planning
[2020-05-31] MEDS: HYDROcodone/Acetaminophen 10/325 mg Tablet PO PRN (00:34)
[2020-05-31] MEDS: Albuterol 200 PUFF (6.7GM INHALER) INH SCH ×2 (06:00→12:58)
[2020-05-31 06:28] LABS: ALT (SGPT) 11 U/L (8-55); AST (SGOT) 21 U/L (5-34); Albumin 3.1 g/dL (3.4-4.8); Alkaline Phosphatase 103 U/L (40-110); Bilirubin, Direct 0.3 mg/dL (0.1-0.3); Bilirubin, Total 0.6 mg/dL (0.2-1.2); Protein, Total 5.5 g/dL (5.8-8.1)
[2020-05-31 08:41] LABS: #Lymphocytes 1.6 thou/uL (1.20-3.40); #Monocytes 0.9 thou/uL (0.11-0.59); #Neutrophils 4.4 thou/uL (1.40-6.50); %Basophils 0.3 % (0.0-1.0); %Eosinophils 0.1 % (0.0-10.0); %Lymphocytes 23.4 % (21.0-51.0); %Monocytes 12.5 % (0.0-10.0); %Neutrophils 63.6 % (42.0-75.0); Hemoglobin 9.4 g/dL (14.0-18.0); Mean Corpuscular HGB CONC 32.6 g/dL (32.0-36.0); Mean Corpuscular Hemoglobin 32.9 pg (27.0-31.0); Mean Platelet Volume 8.2 fL (7.4-10.4); Platelet Count 492 thou/uL (130-400); RBC Distribution Width 15.1 % (11.5-14.5); Red Blood Cell (RBC) Count 2.85 mill/uL (4.70-6.10); White Blood Cell (WBC) Count 6.9 thou/uL (4.8-10.8)
[2020-05-31 08:59] LABS: Anion Gap 16 mmol/L (10-20); BUN (Urea Nitrogen) 16 mg/dL (8.4-25.7); Calc. Creatinine Clearance 61 mL/min (70-130); Calcium 8.5 mg/dL (7.8-10.44); Carbon Dioxide 23 mmol/L (23-31); Chloride 99 mmol/L (98-107); Glucose 159 mg/dL (83-110); Potassium 4.3 mmol/L (3.5-5.1); Sodium 134 mmol/L (136-145)
[2020-05-31] MEDS: Apixaban 2.5 MG TAB PO SCH (09:06)
[2020-05-31] MEDS: Losartan 25 MG TAB PO SCH (09:06)
[2020-05-31] MEDS: Tamsulosin HCl 0.4 MG CAP PO SCH (09:07)
[2020-05-31] MEDS: Carvedilol 6.25 MG TAB PO SCH (09:07)
[2020-05-31] MEDS: Gemfibrozil 600 MG TAB PO SCH (09:07)
[2020-05-31] MEDS: Dexamethasone 4 mg/ml Vial SLOW IVP SCH (09:08)
[2020-05-31] MEDS: DULoxetine 60 MG CAP PO SCH (09:08)
[2020-05-31] MEDS: Atorvastatin Calcium 40 MG TAB PO SCH (09:10)
[2020-05-31] MEDS: Polyethylene Glycol 3350 17 GM Packet PO SCH (11:14)
--- NOTE | 2020-05-31 16:40 | PDOC.HOSPP ---
- Subjective Encounter Date: 05/31/20 Encounter Time: 16:39 Subjective: Mr. Gambino was seen today in follow-up of COVID pneumonia. He says he feels much better. No complaints. He has been ambulating with PT. - Objective Vital Signs & Weight: Vital Signs (12 hours) Temp Pulse Resp BP BP BP Pulse Ox 05/31/20 12:33 97.7 F 76 16 157/79 H 96 05/31/20 09:45 152/77 H 05/31/20 09:07 211/79 H 05/31/20 09:00 98.2 F 85 16 211/79 H 95 Weight Weight 143 lb 3 oz I&O: 05/30/20 05/31/20 06/01/20 06:59 06:59 06:59 Intake Total 2830 1260 Output Total 1999 1400 650 Balance 830 -140 -650 Result Diagrams: 05/31/20 08:14 05/31/20 08:14 Additional Labs: Accuchecks 05/31/20 05/31/20 05/31/20 15:31 11:04 05:05 POC Glucose 150 H 138 H 189 H 05/30/20 05/30/20 05/30/20 20:44 16:00 11:28 POC Glucose 183 H 281 H 176 H 05/28/20 15:55 POC Glucose 150 H Hospitalist ROS - Medication Medications: Active Medications Generic Name Dose Route Start Last Admin Trade Name Freq PRN Reason Stop Dose Admin Hydrocodone Bitart/Acetaminophen 1 tab 05/25/20 21:07 05/28/20 15:45 Hydrocodone/Acetaminophen 5/325 Mg Tablet PO 1 tab Q4H PRN Administration Moderate Pain (4-6) Hydrocodone Bitart/Acetaminophen 2 tab 05/25/20 21:53 05/31/20 00:34 Hydrocodone/Acetaminophen 10/325 Mg Tablet PO 2 tab Q6HR PRN Administration Severe Pain (7-10) Albuterol Sulfate 2 puff 05/26/20 07:30 05/29/20 06:13 Albuterol 200 Puff (6.7gm Inhaler) INH 2 puff Q2H PRN Administration SOB &/or Wheezing Albuterol Sulfate 2 puff 05/26/20 13:00 05/31/20 12:58 Albuterol 200 Puff (6.7gm Inhaler) INH 2 puff [id number] YOSI Administration Apixaban 2.5 mg 05/26/20 09:00 05/31/20 09:06 Apixaban 2.5 Mg Tab PO 2.5 mg BID YOSI Administration Atorvastatin Calcium 40 mg 05/26/20 09:00 05/31/20 09:10 Atorvastatin Calcium 40 Mg Tab PO 40 mg DAILY YOSI Administration Carvedilol 6.25 mg 05/26/20 09:00 05/31/20 09:07 Carvedilol 6.25 Mg Tab PO 6.25 mg BID YOSI Administration Clonidine 0.1 mg 05/25/20 21:07 05/31/20 00:34 Clonidine 0.1 Mg Tab PO 0.1 mg BID PRN Administration SBP > 160 use second Dexamethasone 6 mg 05/27/20 09:00 05/31/20 09:08 Dexamethasone 4 Mg/Ml Vial SLOW IVP 6 mg DAILY YOSI Administration Duloxetine HCl 60 mg 05/26/20 09:00 05/31/20 09:08 Duloxetine 60 Mg Cap PO 60 mg DAILY YOSI Administration Fentanyl 25 mcg 05/26/20 09:00 05/29/20 07:37 Fentanyl 25 Mcg/Hour Patch TD 25 mcg Q3D YOSI Administration Gemfibrozil 600 mg 05/26/20 09:00 05/31/20 09:07 Gemfibrozil 600 Mg Tab PO 600 mg DAILY YOSI Administration Hydralazine HCl 10 mg 05/25/20 21:07 05/31/20 02:47 Hydralazine 20 Mg/Ml Vial SLOW IVP 10 mg Q6H PRN Administration SBP GREATER THAN 160 Insulin Human Lispro 0 units 05/25/20 21:54 05/30/20 16:19 Humalog 300 Units/3 Ml Vial SC 4 unit .MILD SLIDING SCALE PRN Administration Mild Correctional Scale Isosorbide Mononitrate 30 mg 05/26/20 09:00 05/31/20 09:07 Isosorbide Mononitrate Er 30 Mg Tab PO 30 mg DAILY YOSI Administration Labetalol HCl 20 mg 05/25/20 21:07 05/30/20 01:37 Labetalol Hcl 100 Mg/20 Ml Vial SLOW IVP 4 ml Q4H PRN Administration SBP > 160 use first Losartan Potassium 100 mg 05/26/20 09:00 05/31/20 09:06 Losartan 25 Mg Tab PO 100 mg DAILY YOSI Administration Morphine Sulfate 2 mg 05/25/20 21:07 05/30/20 20:55 Morphine 2 Mg/Ml Vial SLOW IVP 2 mg Q4H PRN Administration severe pain 4-10 Pantoprazole Sodium 40 mg 05/28/20 09:00 05/31/20 09:07 Pantoprazole 40 Mg Tab PO 40 mg DAILY YOSI Administration Polyethylene Glycol 17 gm 05/26/20 09:00 05/31/20 11:14 Polyethylene Glycol 3350 17 Gm Packet PO Not Given DAILY YOSI Ranolazine 1,000 mg 05/26/20 09:00 05/31/20 09:08 Ranolazine 500 Mg Tab PO 1,000 mg BID YOSI Administration Tamsulosin HCl 0.4 mg 05/26/20 09:00 05/31/20 09:07 Tamsulosin Hcl 0.4 Mg Cap PO 0.4 mg DAILY YOSI Administration - Exam Eye: PERRL, anicteric sclera Heart: RRR, no murmur, no gallops, no rubs, normal peripheral pulses Respiratory: rales Gastrointestinal: soft, non-tender, non-distended, normal bowel sounds, no palpable masses, no hepatomegaly Extremities: no cyanosis, no edema Hosp A/P (1) Acute respiratory failure with hypoxia Code(s): J96.01 - ACUTE RESPIRATORY FAILURE WITH HYPOXIA Status: Acute (2) Pneumonia due to COVID-19 virus Code(s): U07.1 - COVID-19; J12.82 - PNEUMONIA DUE TO CORONAVIRUS DISEASE 2019 Status: Acute (3) Afib Code(s): I48.91 - UNSPECIFIED ATRIAL FIBRILLATION Status: Chronic Qualifiers: Atrial fibrillation type: paroxysmal Qualified Code(s): I48.0 - Paroxysmal atrial fibrillation (4) DM type 2 (diabetes mellitus, type 2) Status: Chronic Qualifiers: Diabetes mellitus detention insulin use: without detention use (5) H/O spinal stenosis Code(s): Z87.39 - PERSONAL HISTORY OF DISEASES OF THE MS SYS AND CONN TISS Status: Chronic (6) Chronic back pain Code(s): M54.9 - DORSALGIA, UNSPECIFIED; G89.29 - OTHER CHRONIC PAIN Status: Chronic (7) Diabetes Code(s): E11.9 - TYPE 2 DIABETES MELLITUS WITHOUT COMPLICATIONS Status: Chronic (8) Anemia, macrocytic Code(s): D53.9 - NUTRITIONAL ANEMIA, UNSPECIFIED Status: Acute (9) Hypertension Code(s): I10 - ESSENTIAL (PRIMARY) HYPERTENSION Status: Chronic Qualifiers: Hypertension type: essential hypertension Qualified Code(s): I10 - Essential (primary) hypertension (10) Hyperlipemia Code(s): E78.5 - HYPERLIPIDEMIA, UNSPECIFIED Status: Chronic Qualifiers: Hyperlipidemia type: unspecified Qualified Code(s): E78.5 - Hyperlipidemia, unspecified (11) BPH (benign prostatic hyperplasia) Code(s): N40.0 - BENIGN PROSTATIC HYPERPLASIA WITHOUT LOWER URINRY TRACT SYMP Status: Chronic - Plan * Acute respiratory failure due to COVID-He has completed his course of Remdesivir * Vitamin D deficiency- will place on VitaminD * He is stable for discharge home with home health
--- NOTE | 2020-05-31 18:09 | PDOC.DS.DS ---
Provider - Provider Date of Admission: 05/25/20 19:03 Date of Discharge: 05/31/20 Admitting Provider: Zoila Fan MD Consultations: Infectious Disease Primary Care Physician: Israel Mckeon MD Course - Hospital Course Hospital Course: Mr. Parmar is a pleasant 89-year-old gentleman that has a history of hypertension and diabetes mellitus. He had an episode of feeling lightheaded and nearly falling. He was found to be hypotensive and hypoxic. He was brought into the emergency room where a CT angiogram of the chest was done demonstrating bilateral groundglass opacities especially in the right upper lung. He was admitted for further evaluation. He was later found to have COVID-19 pneumonia. Given his age and comorbid conditions he was evaluated by our infectious disease specialist and it was recommended to start remdesivir. He did well over the course of the next several days. To the point where he was on 2 L of oxygen and even was able to take it off at times. He ambulated with physical therapy. And was subsequently able to be discharged home. Pertinent Studies: CTA of the chest Resuscitation Status: 05/25/20 21:07 Resuscitation Status Routine Resuscitation Status: FULL: Full Resuscitation - Labs Lab Results: 05/31/20 08:14 05/31/20 08:14 Abnormal Lab Results - Last 48 hrs 05/30/20 06:25: Serum Total Protein 5.2 L, Albumin 3.1 L 05/30/20 06:25: D-Dimer 2.12 H 05/30/20 08:42: C-Reactive Protein 1.97 H 05/31/20 05:34: Serum Total Protein 5.5 L, Albumin 3.1 L 05/31/20 05:34: 25-OH Vitamin D Total 11.9 L 05/31/20 08:14: RBC 2.85 L, Hgb 9.4 L, Hct 28.7 L, MCV 101.0 H, MCH 32.9 H, RDW 15.1 H, Plt Count 492 H, Monocytes % 12.5 H, Monocytes # 0.9 H 05/31/20 08:14: Sodium 134 L Microbiology - Entire Visit 05/25/20 16:34 Venous blood - Right Arm Blood Culture - Final NO GROWTH IN 5 DAYS 05/25/20 16:33 Venous blood - Left Arm Blood Culture - Final NO GROWTH IN 5 DAYS 05/25/20 19:01 Urine voided Urine Culture - Final - Physical Exam Vitals: Vital Signs (12 hours) Temp Pulse Resp BP BP BP Pulse Ox 05/31/20 16:53 97.7 F 83 16 140/75 94 L 05/31/20 14:51 05/31/20 12:33 97.7 F 76 16 157/79 H 96 05/31/20 09:45 152/77 H 05/31/20 09:07 211/79 H 05/31/20 09:00 98.2 F 85 16 211/79 H 95 Pulse Ox Pulse Ox Pulse Ox 05/31/20 16:53 05/31/20 14:51 92 L 88 L 94 L 05/31/20 12:33 05/31/20 09:45 05/31/20 09:07 05/31/20 09:00 Weight Weight 143 lb 3 oz Physical Exam: The patient was seen and examined on the day of discharge. Problem - Problem (1) Acute respiratory failure with hypoxia Code(s): J96.01 - ACUTE RESPIRATORY FAILURE WITH HYPOXIA Status: Acute (2) Pneumonia due to COVID-19 virus Code(s): U07.1 - COVID-19; J12.82 - PNEUMONIA DUE TO CORONAVIRUS DISEASE 2019 Status: Acute (3) Afib Code(s): I48.91 - UNSPECIFIED ATRIAL FIBRILLATION Status: Chronic Qualifiers: Atrial fibrillation type: paroxysmal Qualified Code(s): I48.0 - Paroxysmal atrial fibrillation (4) DM type 2 (diabetes mellitus, type 2) Status: Chronic Qualifiers: Diabetes mellitus alf insulin use: without long term care pharmacist use (5) H/O spinal stenosis Code(s): Z87.39 - PERSONAL HISTORY OF DISEASES OF THE MS SYS AND CONN TISS Status: Chronic (6) Chronic back pain Code(s): M54.9 - DORSALGIA, UNSPECIFIED; G89.29 - OTHER CHRONIC PAIN Status: Chronic (7) Diabetes Code(s): E11.9 - TYPE 2 DIABETES MELLITUS WITHOUT COMPLICATIONS Status: Chronic (8) Anemia, macrocytic Code(s): D53.9 - NUTRITIONAL ANEMIA, UNSPECIFIED Status: Acute (9) Hypertension Code(s): I10 - ESSENTIAL (PRIMARY) HYPERTENSION Status: Chronic Qualifiers: Hypertension type: essential hypertension Qualified Code(s): I10 - Essen tial (primary) hypertension (10) Hyperlipemia Code(s): E78.5 - HYPERLIPIDEMIA, UNSPECIFIED Status: Chronic Qualifiers: Hyperlipidemia type: unspecified Qualified Code(s): E78.5 - Hyperlipidemia, unspecified (11) BPH (benign prostatic hyperplasia) Code(s): N40.0 - BENIGN PROSTATIC HYPERPLASIA WITHOUT LOWER URINRY TRACT SYMP Status: Chronic Plan - Discharge Medications Prescriptions: Dexamethasone [Decadron] 6 mg PO DAILY #6 tablet Cholecalciferol (Vitamin D3) [Vitamin D3] 1,000 unit PO DAILY #30 tab.chew Home Medications: Medication Instructions Recorded Confirmed Type Apixaban [Eliquis] 2.5 mg PO BID 05/04/20 05/25/20 History Atorvastatin Calcium 40 mg PO DAILY 05/04/20 05/25/20 History Carvedilol 6.25 mg PO BID 05/04/20 05/25/20 History DULoxetine [Cymbalta] 60 mg PO DAILY 05/04/20 05/25/20 History Gemfibrozil 600 mg PO DAILY 05/04/20 05/25/20 History HYDROcodone Bit/APAP 10/325 [[place]] 2 tab PO Q6HR PRN 05/04/20 05/25/20 History Isosorbide Mononitrate [Isosorbide 30 mg PO DAILY 05/04/20 05/25/20 History Mononitrate ER] Losartan Potassium 100 mg PO DAILY 05/04/20 05/25/20 History Ranolazine [Ranolazine ER] 1,000 mg PO BID 05/04/20 05/25/20 History Tamsulosin HCl [Flomax] 0.4 mg PO DAILY 05/04/20 05/25/20 History metFORMIN HCl [Metformin HCl] 1,000 mg PO BID 05/04/20 05/25/20 History fentaNYL [Duragesic] 25 mcg TD Q3D 05/06/20 05/25/20 History Aspirin Chewable [Aspirin Chewable 81 mg PO DAILY 05/25/20 05/25/20 History Tablet] Cholecalciferol (Vitamin D3) 1,000 unit PO DAILY #30 tab.chew 05/31/20 Rx [Vitamin D3] Dexamethasone [Decadron] 6 mg PO DAILY #6 tablet 05/31/20 Rx Allergies: Penicillins Allergy (Verified 05/04/20 11:13) - Discharge Instructions Discharge Instructions:: Follow-up with your Primary Care Provider in 3 week YOUR PRESCRIPTIONS WERE SENT TO: [place] [address] Activity:: Activity as Tolerated Nourishment:: Heart Healthy Diet - Follow up Plan Referrals: [facility] [Outside] [facility] [Outside] Kenrick Patel MD [Active] - Israel Mckeon MD [Primary Care Provider] - Disposition: HOME Quality - Care Measures CORE MEASURES:: N/A
[2020-05-31 19:36] VITALS: BP 124/72; TEMP 98
== END 2020-05-31 18:29 | disposition home health service (06) | DRG 177 ==
LOC: ERS 15:09 → INTOOBSV 19:03 → OBSVTOIN 19:03 → SURG A 19:03 → T4-B 05-26 00:13
PROVIDERS: ADMIT Internal Medicine; ATTEND Internal Medicine
PROC: XW033E5 Introduction of Remdesivir Anti-infective into Peripheral Vein, Percutaneous Approach, New Technology Group 5 (ICD-10-PCS; principal; 2020-05-26)
PROC: 8E0ZXY6 Isolation (ICD-10-PCS; 2020-05-26)
DX: U07.1 COVID-19 (principal); J96.01 Acute respiratory failure with hypoxia; J12.82 Pneumonia due to coronavirus disease 2019; E11.9 Type 2 diabetes mellitus without complications; I10 Essential (primary) hypertension; G89.29 Other chronic pain; M54.5 Low back pain; E87.5 Hyperkalemia; I48.0 Paroxysmal atrial fibrillation; E78.5 Hyperlipidemia, unspecified; D53.9 Nutritional anemia, unspecified; N40.0 Benign prostatic hyperplasia without lower urinary tract symptoms; E55.9 Vitamin D deficiency, unspecified; Z95.5 Presence of coronary angioplasty implant and graft; Z79.899 Other long term (current) drug therapy; Z79.82 Long term (current) use of aspirin; Z79.84 Long term (current) use of oral hypoglycemic drugs; Z87.39 Personal history of other diseases of the musculoskeletal system and connective tissue; I25.10 Atherosclerotic heart disease of native coronary artery without angina pectoris; M54.9 Dorsalgia, unspecified; I95.9 Hypotension, unspecified
CPT/HCPCS: 36415; 36416; 71045; 71275; 80048; 80053; 80076; 81003; 81015; 82306; 82607; 82728; 82746; 83605; 83690; 83735; 83880; 84484; 85025; 85379; 86140; 86769; 87040; 87086; 93005; 96365; 96375; 96376; G0378; J0360; J0456; J0696; J1100; J2270; J3475; J7050; Q9967; U0002